=== PATIENT | male | born 1940 | race Caucasian/White ===

== ENCOUNTER 2023-02-25 12:39 | Observation (INO) | payer MEDICARE ==
[2023-02-25 12:57] VITALS: TEMP 98.7
[2023-02-25] MEDS ORDERED: NITROGLYCERIN OINT 1 INCH/GM PACKET TOPICAL STA (12:58)
[2023-02-25] MEDS ORDERED: ASPIRIN 81 MG PO STA (12:58)
--- NOTE | 2023-02-25 13:00 | ED ---
General Adult HPI - General Chief complaint: Chest Pain Stated complaint: Chest Pain Time Seen by Provider: 02/25/23 12:44 Source: patient, RN notes reviewed Mode of arrival: ambulatory Limitations: no limitations - History of Present Illness Initial comments: Patient is a pleasant 82-year-old male presenting to the emergency department with concerns for chest discomfort. Onset of symptoms was yesterday. Discomfort is currently rated 2/10. Discomfort is difficult to describe. No radiation. No associated dyspnea, nausea, or diaphoresis. No history of similar symptoms previously. Patient recently restarted Adderall and has had high blood pressure at home. - Related Data Home Medications Medication Instructions Recorded Confirmed ALPRAZolam [Xanax] 2 mg PO HS 11/03/22 11/03/22 Atorvastatin [Lipitor] 20 mg PO HS 11/03/22 11/03/22 Omeprazole 20 mg PO BID 11/03/22 11/03/22 Propranolol [Inderal] 10 mg PO TID 11/03/22 11/03/22 lisinopriL [Lisinopril] 40 mg PO HS 11/03/22 11/03/22 traZODone HCL 100 mg PO HS 11/03/22 11/03/22 Allergies Allergy/AdvReac Type Severity Reaction Status Date / Time No Known Allergies Allergy Verified 02/25/23 12:40 Review of Systems ROS Statement: Those systems with pertinent positive or pertinent negative responses have been documented in the HPI. ROS Other: All systems not noted in ROS Statement are negative. 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 Absent: chest wall tenderness, accessory muscle use Cardiovascular Exam: Present: regular rate, normal rhythm Expanded Peripheral pulses: 2+: Radial (R), Radial (L), Posterior Tibialis (R), Posterior Tibialis (L) GI/Abdominal exam: Present: soft. Absent: tenderness Extremities exam: Present: normal inspection. Absent: pedal edema, calf tenderness Neurological exam: Present: alert Psychiatric exam: Present: normal affect, normal mood Skin exam: Present: normal color Course Vital Signs 02/25/23 02/25/23 12:41 13:15 Temperature 98.7 F Pulse Rate 78 67 Respiratory 16 18 Rate Blood Pressure 154/98 124/85 O2 Sat by Pulse 98 99 Oximetry EKG Findings - EKG Results: EKG: interpreted by FRANKD (Right bundle branden block. Nonspecific T waves.), sinus rhythm, normal axis Medical Decision Making - Medical Decision Making Was pt. sent in by a medical professional or institution (, PA, ADVICE CLERK, urgent care, hospital, or alf...) When possible be specific @ -No Did you speak to anyone other than the patient for history (EMS, parent, family, police, friend...)? What history was obtained from this source @ -No Did you review nursing and triage notes (agree or disagree)? Why? @ -I reviewed and agree with nursing and triage notes Were old charts reviewed (outside hosp., previous admission, EMS record, old EKG, old radiological studies, urgent care reports/EKG's, alf records)? Report findings @ -No previous EKG available Differential Diagnosis (chest pain, altered mental status, abdominal pain women, abdominal pain men, vaginal bleeding, weakness, fever, dyspnea, syncope, headache, dizziness, GI bleed, back pain, seizure, CVA, palpatations, mental health, musculoskeletal)? @ -Differential Chest Pain: Stable Angina, Unstable Angina, STEMI, NSTEMI Aortic Dissection, Pneumothorax, Musculoskeletal, Esophageal Spasm GERD, Cholecystitis, Pancreatitis, Zoster, this is not meant to be an all-inclusive list. EKG interpreted by me (3pts min.). @ -As above X-rays interpreted by me (1pt min.). @ -Chest x-ray shows no acute process CT interpreted by me (1pt min.). @ -None done U/S interpreted by me (1pt. min.). @ -None done What testing was considered but not performed or refused? (CT, X-rays, U/S, labs)? Why? @ -None What meds were considered but not given or refused? Why? @ -None Did you discuss the management of the patient with other professionals (professionals i.e. , PA, ADVICE CLERK, lab, RT, psych nurse, social services specialist, ekg technician, teacher, benefits officer, oil field caser)? Give summary @ -[facility], Dr. Bartholomew who will admit current Dr. Naranjo Was smoking cessation discussed for >3mins.? @ -No Was critical care preformed (if so, how long)? @ -No Were there social determinants of health that impacted care today? How? (Homelessness, low income, unemployed, alcoholism, drug addiction, transportation, low edu. Level, literacy, decrease access to med. care, half-way, rehab)? @ -No Was there de-escalation of care discussed even if they declined (Discuss DNR or withdrawal of care, Hospice)? DNR status @ -No What co-morbidities impacted this encounter? (DM, HTN, Smoking, COPD, CAD, Cancer, CVA, ARF, Chemo, Hep., AIDS, mental health diagnosis, sleep apnea, morbid obesity)? @ -None Was patient admitted / discharged? Hospital course, mention meds given and route, prescriptions, significant lab abnormalities, going to OR and other pertinent info. @ -Patient reevaluated. Patient updated. Patient does have elevated d-dimer and computed tomography scan will be ordered. Patient will be admitted . Canal to replace and consult. Admission orders written. Undiagnosed new problem with uncertain prognosis? @ -No Drug Therapy requiring intensive monitoring for toxicity (Heparin, Nitro, Insulin, Cardizem)? @ -No Were any procedures done? @ -No Diagnosis/symptom? @ -Chest pain Acute, or Chronic, or Acute on Chronic? @ -Acute Uncomplicated (without systemic symptoms) or Complicated (systemic symptoms)? @ -default Side effects of treatment? @ -No Exacerbation, Progression, or Severe Exacerbation? @ -No Poses a threat to life or bodily function? How? (Chest pain, [place], [place], pneumonia, PE, COPD, DKA, ARF, appy, cholecystitis, CVA, Diverticulitis, Homicidal, Suicidal, threat to staff... and all critical care pts) @ -No - Lab Data Result diagrams: 02/25/23 13:08 02/25/23 13:08 Lab Results 02/25/23 02/25/23 02/25/23 Range/Units 13:08 13:08 13:08 WBC 5.1 (3.8-10.6) k/uL RBC 4.56 (4.30-5.90) m/uL Hgb 13.3 (13.0-17.5) gm/dL Hct 40.2 (39.0-53.0) % MCV 88.2 (80.0-100.0) fL MCH 29.1 (25.0-35.0) pg MCHC 33.0 (31.0-37.0) g/dL RDW 15.3 (11.5-15.5) % Plt Count 133 L (150-450) k/uL MPV 9.6 Neutrophils % 62 % Lymphocytes % 24 % Monocytes % 9 % Eosinophils % 2 % Basophils % 0 % Neutrophils # 3.2 (1.3-7.7) k/uL Lymphocytes # 1.2 (1.0-4.8) k/uL Monocytes # 0.5 (0-1.0) k/uL Eosinophils # 0.1 (0-0.7) k/uL Basophils # 0.0 (0-0.2) k/uL PT 9.9 L (10.0-12.5) sec INR 0.9 (<1.2) APTT 22.2 (22.0-30.0) sec D-Dimer 1.47 H (<0.60) mg/L FEU Sodium 133 L (137-145) mmol/L Potassium 5.2 H (3.5-5.1) mmol/L Chloride 99 (98-107) mmol/L Carbon Dioxide 25 (22-30) mmol/L Anion Gap 9 mmol/L BUN 17 (9-20) mg/dL Creatinine 0.88 (0.66-1.25) mg/dL Est GFR (CKD-EPI)AfAm >90 (>60 ml/min/1.73 sqM) Est GFR (CKD-EPI)NonAf 81 (>60 ml/min/1.73 sqM) Glucose 84 (74-99) mg/dL Calcium 9.0 (8.4-10.2) mg/dL Magnesium 2.1 (1.6-2.3) mg/dL Total Bilirubin 0.8 (0.2-1.3) mg/dL AST 46 (17-59) U/L ALT 20 (4-49) U/L Alkaline Phosphatase 41 (38-126) U/L Troponin I (0.000-0.034) ng/mL Total Protein 6.3 (6.3-8.2) g/dL Albumin 3.8 (3.5-5.0) g/dL 02/25/23 Range/Units 13:08 WBC (3.8-10.6) k/uL RBC (4.30-5.90) m/uL Hgb (13.0-17.5) gm/dL Hct (39.0-53.0) % MCV (80.0-100.0) fL MCH (25.0-35.0) pg MCHC (31.0-37.0) g/dL RDW (11.5-15.5) % Plt Count (150-450) k/uL MPV Neutrophils % % Lymphocytes % % Monocytes % % Eosinophils % % Basophils % % Neutrophils # (1.3-7.7) k/uL Lymphocytes # (1.0-4.8) k/uL Monocytes # (0-1.0) k/uL Eosinophils # (0-0.7) k/uL Basophils # (0-0.2) k/uL PT (10.0-12.5) sec INR (<1.2) APTT (22.0-30.0) sec D-Dimer (<0.60) mg/L FEU Sodium (137-145) mmol/L Potassium (3.5-5.1) mmol/L Chloride (98-107) mmol/L Carbon Dioxide (22-30) mmol/L Anion Gap mmol/L BUN (9-20) mg/dL Creatinine (0.66-1.25) mg/dL Est GFR (CKD-EPI)AfAm (>60 ml/min/1.73 sqM) Est GFR (CKD-EPI)NonAf (>60 ml/min/1.73 sqM) Glucose (74-99) mg/dL Calcium (8.4-10.2) mg/dL Magnesium (1.6-2.3) mg/dL Total Bilirubin (0.2-1.3) mg/dL AST (17-59) U/L ALT (4-49) U/L Alkaline Phosphatase (38-126) U/L Troponin I <0.012 (0.000-0.034) ng/mL Total Protein (6.3-8.2) g/dL Albumin (3.5-5.0) g/dL Disposition Clinical Impression: Chest pain Disposition: ADMITTED IP TO THIS HOSP Is patient prescribed a controlled substance at d/c from ED?: No Time of Disposition: 14:40
[2023-02-25 13:20] VITALS: RESP 18
[2023-02-25 13:58] LABS: Basophils % (A) 0 %; Eosinophils # (A) 0.1 k/uL (0-0.7); Eosinophils % (A) 2 %; HCT 40.2 % (39.0-53.0); HGB 13.3 gm/dL (13.0-17.5); Lymphocytes # (A) 1.2 k/uL (1.0-4.8); Lymphocytes % (A) 24 %; MCH 29.1 pg (25.0-35.0); MCV 88.2 fL (80.0-100.0); Mean Platelet Volume 9.6; Monocytes # (A) 0.5 k/uL (0-1.0); Monocytes % (A) 9 %; Neutrophils # (A) 3.2 k/uL (1.3-7.7); Neutrophils % (A) 62 %; Platelet Count 133 k/uL (150-450); RBC 4.56 m/uL (4.30-5.90); RDW 15.3 % (11.5-15.5); WBC 5.1 k/uL (3.8-10.6)
--- NOTE | 2023-02-25 14:01 | XR ---
EXAMINATION TYPE: XR chest 2V DATE OF EXAM: 02/25/2023 1:32 PM CLINICAL INDICATION:Male, 82 years old with history of Chest Pain; COMPARISON: None TECHNIQUE: XR chest 2V Frontal and lateral views of the chest. FINDINGS: Lungs/Pleura: There is flattening of the diaphragm with increased lucency of the lungs. No evidence o f pneumothorax, pleural effusion or focal consolidation. Pulmonary vascularity: Unremarkable. Heart/mediastinum: Cardiomediastinal silhouette is unremarkable. Musculoskeletal: No acute osseous pathology. Other findings: None IMPRESSION: 1. No acute cardiopulmonary disease process. 2. COPD changes.
[2023-02-25 14:07] LABS: ALT 20 U/L (4-49); AST 46 U/L (17-59); African American GFR (CKD) >90 (>60 ml/min/1.73 sqM); Albumin 3.8 g/dL (3.5-5.0); Alkaline Phosphatase 41 U/L (38-126); Anion Gap 9 mmol/L; Blood Urea Nitrogen 17 mg/dL (9-20); Carbon Dioxide 25 mmol/L (22-30); Chloride 99 mmol/L (98-107); Glucose 84 mg/dL (74-99); Magnesium 2.1 mg/dL (1.6-2.3); Non-African American GFR(CKD) 81 (>60 ml/min/1.73 sqM); Sodium 133 mmol/L (137-145); Total Bilirubin 0.8 mg/dL (0.2-1.3); Total Protein 6.3 g/dL (6.3-8.2)
[2023-02-25 14:18] LABS: INR 0.9 (<1.2); Partial Thromboplastin Time 22.2 sec (22.0-30.0); Prothrombin Time 9.9 sec (10.0-12.5)
[2023-02-25] MEDS ORDERED: NITROGLYCERIN SL TABS 0.4 MG TAB SUBLINGUAL PRN (14:41)
[2023-02-25 14:54] LABS: Potassium 5.2 mmol/L (3.5-5.1)
[2023-02-25 15:07] VITALS: BP 140/91; PULSE 75
--- NOTE | 2023-02-25 16:12 | CT ---
EXAMINATION TYPE: CT angio chest CT DLP: 933.9 mGycm, Automated exposure control for dose reduction was used. DATE OF EXAM: 02/25/2023 3:41 PM COMPARISON: Chest radiograph from same day. CLINICAL INDICATION:Male, 82 years old with history of cp; Elevated D-dimer. TECHNIQUE/CONTRAST: CTA scan of the thorax is performed with IV Contrast, patient injected with 150 ml mL of Isovue 370, MIP images are created and reviewed these are created on a separate workstation.. FINDINGS: Pulmonary Artery: There is no evidence for a central filling defect within the pulmonary vasculature to suggest acute pulmonary embolism. Limited evaluation of the segmental and subsegmental branches se condary to bolus timing. The pulmonary artery is of normal size. Lungs/Pleura: No evidence of focal consolidation, pleural effusion or pneumothorax. Scattered streaky atelectasis/scarring. Airway: Large airways are patent. Heart: Heart is within normal limits for size. Vasculature: No evidence of aortic aneurysm. 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 Mediastinum: No gross evidence of adenopathy. Musculoskeletal: No acute osseous abnormalities, multilevel degeneration changes throughout the spine . Scattered osteophytes, disc space narrowing, Schmorl's nodes and facet joint arthropathy. There is scoliosis changes to the spine. Severe degeneration changes of the shoulders with subchondral cystic change and likely [id number] articulation of the left shoulder. Soft Tissues: Unremarkable. Lower neck: No significant findings. Upper Abdomen: Simple appearing left renal cysts. IMPRESSION: 1. No evidence of central pulmonary embolism. Limited evaluation of the segmental and subsegmental br anches. 2. 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
[2023-02-25] MEDS ORDERED: NITROGLYCERIN OINT 1 INCH/GM PACKET TOPICAL SCH (18:00)
[2023-02-26] MEDS ORDERED: ASPIRIN 325 MG TAB PO SCH (09:00)
== END 2023-02-25 16:14 | disposition left against medical advice (07) ==
LOC: EC 12:39 → 6NMEDSUR 14:41
PROVIDERS: ADMIT Internal Medicine; ATTEND Internal Medicine
DX: R07.89 Other chest pain (principal); Z53.29 Procedure and treatment not carried out because of patient's decision for other reasons; I45.10 Unspecified right bundle-branch block; R79.89 Other specified abnormal findings of blood chemistry; R03.0 Elevated blood-pressure reading, without diagnosis of hypertension; G47.419 Narcolepsy without cataplexy; N42.9 Disorder of prostate, unspecified; H81.09 Meniere's disease, unspecified ear; Z90.49 Acquired absence of other specified parts of digestive tract; Z79.899 Other long term (current) drug therapy; Z98.890 Other specified postprocedural states
CPT/HCPCS: 99285; 36415; 93005; 85379; 80053; 83735; 84484; 85025; 85610; 85730; 71046; 71275; G0378; Q9967

== ENCOUNTER → 2023-02-25 | Outpatient (CLI) | payer MEDICARE ==
--- NOTE | 2023-02-25 15:12 | MR ---
EXAMINATION TYPE: MR iac wo/w con DATE OF EXAM: 02/25/2023 12:24 PM CLINICAL INDICATION:Male, 82 years old with history of R26.89, R42 GAIT,MOBILITY,DIZZINESS AND GIDDIN ESS; PHH, Unsteady gait, dizziness COMPARISON: None TECHNIQUE: Multi planar, multi sequence imaging was performed through the brain. Specialized thin s equences were obtained through the internal auditory canals. Pre-and post gadolinium sequences were obtained. MR contrast: IV Contrast: 9 cc Gadavist FINDINGS: Prior injury to the left frontal lobe and right frontal lobe with encephalomalacia and white matter changes. Dilation proportion to cerebral atrophy. The dobbins-white junctions, ventricular system, and c isterns appear unremarkable. Scattered foci of high T2 signal intensity are seen within the periventr icular white matter. Midline structures show no abnormality. Diffusion-weighted imaging shows no evid ence of restricted diffusion. The susceptibility weighted images do not reveal any evidence for micro -hemorrhage. The bone marrow signal is within normal limits. Paranasal sinuses and mastoid air cells: Mild scattered paranasal sinus disease. Visualized orbits: Bilateral aphakia After administration of gadolinium, no abnormal enhancement is seen. The internal auditory canal sequences demonstrate no significant irregularity. The 7th cranial nerve s, 8 cranial nerves, and cerebellar pontine angles appear unremarkable. After the administration milind olinium, no abnormal enhancement is seen within the internal auditory canals. Vascular loop: None. IMPRESSION: 1. No evidence of intracranial mass nor acute/subacute CVA. 2. No evidence of internal auditory canal abnormality. 3. Nonspecific white matter changes, likely secondary to small vessel ischemic disease. 4. 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
== END | disposition home or self-care (01) ==
LOC: RADMRIMAIN 11:02
PROVIDERS: ATTEND Psychiatry & Neurology Neurology
DX: G93.89 Other specified disorders of brain (principal); I67.82 Cerebral ischemia; R26.89 Other abnormalities of gait and mobility
CPT/HCPCS: 70553; A9585

== ENCOUNTER → 2023-03-02 | Outpatient (CLI) | payer MEDICARE ==
--- NOTE | 2023-03-03 09:44 | MR ---
EXAMINATION TYPE: MR angio neck wo/w con DATE OF EXAM: 03/02/2023 COMPARISON: None HISTORY: Abnormal gait and abnormal mobility, Abn MRI IAC, Vertigo, Dizziness, Hx of Prostate cancer 2017, CONTRAST: None TECHNIQUE: Multiplanar multiecho imaging on a 3.0 Jacy magnet is performed through the neck vessels. 3-D [id number] imaging is performed. Source images are reviewed on the computer in the axial p barbie. Rotating 3-D images are reviewed on the computer FINDINGS: There is a three-vessel arch. The common carotid arteries bifurcate normally into internal and sales management trainee al carotid arteries. Some atheromatous plaquing is noted on the left. However, no flow gap to suggest significant flow limiting stenosis is identified. Narrowing is likely mild approximating 50% on the left. Correlate with the patient's symptoms. Significant narrowing on the right is not appreciated. Vertebral arteries are codominant. There is some artifact present from slab reconstruction artifact causing limitation. IMPRESSION: 1. Some mild narrowing approximately 50% may be at the left internal carotid artery origin. Significa nt flow-limiting stenosis however is not evident bilateral carotid bifurcations.
== END | disposition home or self-care (01) ==
LOC: RADMRIMAIN 11:13
PROVIDERS: ATTEND Psychiatry & Neurology Neurology
DX: I65.22 Occlusion and stenosis of left carotid artery (principal); R26.89 Other abnormalities of gait and mobility; R42 Dizziness and giddiness; R93.7 Abnormal findings on diagnostic imaging of other parts of musculoskeletal system; R26.9 Unspecified abnormalities of gait and mobility; Z85.46 Personal history of malignant neoplasm of prostate
CPT/HCPCS: 70549; A9585

== ENCOUNTER → 2024-01-26 | Day surgery (SDC) | payer MEDICARE ==
[~2024-01-26] MED LIST: ALPRAZolam 0.25 MG TAB PO PRN; HEPARIN SODIUM,PORCINE (1 ML) 2,500 UNIT in SODIUM CHLORIDE 0.9% 250 ML IRRIGATION PRN; HEPARIN SODIUM,PORCINE 10,000 UNIT in SODIUM CHLORIDE 0.9% 1,000 ML IRRIGATION PRN; NITROGLYCERIN SL TABS 0.4 MG TAB SUBLINGUAL PRN
[2024-01-26] MEDS: ASPIRIN 325 MG TAB PO STA (10:40)
[2024-01-26] MEDS: SODIUM CHLORIDE 0.9% 1,000 ML in EMPTY BAG 1 BAG IV SCH (10:42)
[2024-01-26] MEDS: IV FLUID CONTINUATION 1,000 ML IV ONE (10:44)
[2024-01-26 10:51] VITALS: TEMP 97.8
[2024-01-26] MEDS: ALPRAZolam 0.5 MG TAB PO PRN (10:56)
[2024-01-26 10:57] LABS: Basophils % (A) 0 %; Eosinophils # (A) 0.1 k/uL (0-0.7); Eosinophils % (A) 2 %; HCT 38.5 % (39.0-53.0); HGB 12.7 gm/dL (13.0-17.5); Lymphocytes # (A) 1.1 k/uL (1.0-4.8); Lymphocytes % (A) 21 %; MCH 28.6 pg (25.0-35.0); MCHC 32.9 g/dL (31.0-37.0); MCV 86.9 fL (80.0-100.0); Monocytes # (A) 0.4 k/uL (0-1.0); Monocytes % (A) 8 %; Neutrophils # (A) 3.5 k/uL (1.3-7.7); Neutrophils % (A) 66 %; Platelet Count 146 k/uL (150-450); RBC 4.43 m/uL (4.30-5.90); RDW 14.2 % (11.5-15.5); WBC 5.3 k/uL (3.8-10.6)
[2024-01-26 11:25] LABS: African American GFR (CKD) >90 (>60 ml/min/1.73 sqM); Anion Gap 1 mmol/L; Blood Urea Nitrogen 15 mg/dL (9-20); Calcium 9.1 mg/dL (8.4-10.2); Carbon Dioxide 32 mmol/L (22-30); Chloride 100 mmol/L (98-107); Glucose 87 mg/dL (74-99); Non-African American GFR(CKD) 81 (>60 ml/min/1.73 sqM); Potassium 4.5 mmol/L (3.5-5.1); Sodium 133 mmol/L (137-145)
[2024-01-26] MEDS: MIDAZOLAM 2 MG/2 ML VIAL IVP ONE (12:25)
[2024-01-26] MEDS: fentaNYL (PF) 50 MCG/1 ML VIAL IVP ONE (12:25)
[2024-01-26] MEDS: LIDOCAINE 1% INJ 10MG/ML (20 ML MDV) SQ ONE (12:26)
[2024-01-26] MEDS: VERAPAMIL SYRINGE (5 MG/10 ML) INTRAARTER ONE (12:29)
[2024-01-26] MEDS: HEPARIN SODIUM 1,000 UN/ML (10ML VL) IV ONE (12:30)
[2024-01-26] MEDS: IOPAMIDOL-370 100ML BTL INJ ONE (12:34)
--- NOTE | 2024-01-26 14:26 | P.CARDCATH ---
Description of Procedure: PROCEDURES PERFORMED: Left heart catheterization, bilateral coronary angiography, ultrasound guided arterial access INDICATION: abnormal stress test CONSENT:I have discussed the risks, benefits and alternative therapies for the above-mentioned procedure and for both sedation/analgesia as well as necessary blood product administration, if indicated, as they pertain to this patient. The patient has indicated understanding and acceptance of the risks and procedures discussed. PROCEDURE: After the risks, benefits and alternatives of the above mentioned procedure explained in detail with the patient, informed consent was obtained. Patient was taken to the catheterization lab and prepped and draped in usual fashion. Ultrasound guidance was used to assess for arterial access. 1% lidocaine was used to anesthetize the right radial artery. A 6-Zambian sheath was placed in the right radial artery using modified Seldinger technique and ultrasound guidance. Left coronary angiography was performed with a 5-Z[place]ian JL 3.5 catheter and right coronary angiography was performed with a 5-Z[place]ian FR5 catheter in various views. A 5-[place]ian FR5 catheter was inserted into the left ventricle and pressure measurements were obtained. The right radial sheath was removed and a TR band was placed with hemostasis achieved. The patient to lerated the procedure well. Patient was transported back to the post catheterization holding area in stable condition. Conscious Sedation: Patient was monitored under the direct supervision of myself for conscious sedation using Versed and fentanyl for a total duration of 9 minutes HEMODYNAMICS: Aorta: 129/70 LV: 124/LVEDP 30 SELECTIVE CORONARY ARTERIOGRAPHY: LEFT MAIN: The left main is a large caliber vessel which bifurcates into the LAD and circumflex. There is no significant stenosis. LEFT ANTERIOR DESCENDING CORONARY ARTERY: LAD is a large caliber vessel which wraps around to the apex. There is mild 5-10% proximal LAD plaque and otherwise normal. LEFT CIRCUMFLEX CORONARY ARTERY: Left circumflex is a moderate caliber vessel without significant stenosis. RIGHT CORONARY ARTERY: The right coronary artery is a large caliber vessel which gives off a PDA and PLV branch and is the dominant vessel. There is no significant stenosis. FINAL IMPRESSION: 1. Relatively normal coronary arteries as described above with only 5-10% LAD stenosis. 2. Elevated left sided filling pressures PLAN: 1. Aggressive risk factor modification per most recent ACC/AHA guidelines. 2. Follow-up in the office in 1-2 weeks.
[2024-01-26 16:36] VITALS: BP 103/56; PULSE 54; RESP 14
== END ==
LOC: CATHCVL 10:13
PROVIDERS: ATTEND Internal Medicine
DX: R94.39 Abnormal result of other cardiovascular function study (principal)
CPT/HCPCS: 80048; 85025; 93458

== ENCOUNTER 2024-02-14 20:23 | Inpatient (IN) | payer MEDICARE ==
--- NOTE | 2024-02-14 21:01 | ED ---
General Adult HPI - General Chief complaint: Shortness of Breath Stated complaint: Pneumonia Time Seen by Provider: 02/14/24 20:34 Source: patient, EMS Mode of arrival: EMS Limitations: no limitations - History of Present Illness Initial comments: Dictation was produced using AVST dictation software. please excuse any grammatical, word or spelling errors. Chief Complaint: 83-year-old male presents to the emergency department concerns of pneumonia History of Present Illness: Patient is 83-year-old male he wears home oxygen states that he has a lung mass that makes it hard to breathe when he lays down. He states is not lung cancer. He wears 5 L nasal cannula at home. He presents with EMS he states that he is been having productive cough and fever since Monday. Denies any chest pain The ROS documented in this emergency department record has been reviewed and confirmed by me. Those systems with pertinent positive or negative responses have been documented in the HPI. All other systems are other negative and/or noncontributory. - Related Data Home Medications Medication Instructions Recorded Confirmed ALPRAZolam [Xanax] 2 mg PO HS 11/03/22 01/26/24 Atorvastatin [Lipitor] 20 mg PO QAM 11/03/22 01/26/24 Omeprazole 20 mg PO BID 11/03/22 01/26/24 lisinopriL [Lisinopril] 40 mg PO QAM 11/03/22 01/26/24 traZODone HCL 300 mg PO HS 11/03/22 01/26/24 Fluticasone Propionate [Flovent 1 puff INHALATION RT-BID PRN 02/25/23 01/26/24 Hfa 220 mcg] Gabapentin [Neurontin] 300 mg PO BID 02/25/23 01/26/24 Multivitamins, Thera [Multivitamin 1 tab PO DAILY 02/25/23 01/23/24 (formulary)] Naproxen Sodium [Naproxen Sodium 375 mg PO BID PRN 02/25/23 01/23/24 ER] Nitroglycerin Sl Tabs [Nitrostat] 0.4 mg SL Q5M PRN 02/25/23 01/23/24 Ondansetron Odt [Zofran Odt] 8 mg PO TID PRN 02/25/23 01/23/24 Testosterone [Androgel 1.62%] 2 pump TRANSDERM HS 02/25/23 01/26/24 Vitamin B Complex 1 cap PO DAILY 02/25/23 01/26/24 armodafiniL 150 mg PO QAM 02/25/23 01/26/24 FLUoxetine HCL [PROzac] 20 mg PO QAM 01/23/24 01/26/24 Meclizine [Antivert] 25 mg PO DAILY PRN 01/23/24 01/26/24 Promethazine [Phenergan] 25 mg PO HS PRN 01/23/24 01/23/24 Propranolol HCl 80 mg PO BID 01/23/24 01/26/24 hydrALAZINE HCL 25 mg PO DIRECTED PRN 01/26/24 01/26/24 Allergies Allergy/AdvReac Type Severity Reaction Status Date / Time No Known Allergies Allergy Verified 02/14/24 20:31 Review of Systems ROS Statement: Those systems with pertinent positive or pertinent negative responses have been documented in the HPI. ROS Other: All systems not noted in ROS Statement are negative. Past Medical History Past Medical History: Cancer, Prostate Disorder Additional Past Medical History / Comment(s): ESSENTAILS TREMORS. PROSTATE CANCER. MENIERS. Narcolepsy. ASPIRATION PNEUMONIA (SOB AT NIGHT, O2@5L). History of Any Multi-Drug Resistant Organisms: None Reported Past Surgical History: Appendectomy, Back Surgery Additional Past Surgical History / Comment(s): L4-5 BACK SURGERY. INOPERABLE PROSTATE CANCER (RADIATION). LASIK. EVY ORCHIECTOMY. Past Anesthesia/Blood Transfusion Reactions: No Reported Reaction Past Psychological History: No Psychological Hx Reported Smoking Status: Never smoker Past Alcohol Use History: Occasional Past Drug Use History: None Reported General Exam - General Exam Comments Initial Comments: PHYSICAL EXAM: General Impression: Alert and oriented x3, not in acute distress HEENT: Normocephalic atraumatic, extra-ocular movements intact, pupils equal and reactive to light bilaterally, mucous membranes moist. Cardiovascular: Heart regular rate and rhythm Chest: Able to complete full sentences, no retractions, no tachypnea rhonchi with auscultation to the right lung hilliard Abdomen: abdomen soft, non-tender, non-distended, no organomegaly Musculoskeletal: Pulses present and equal in all extremities, no peripheral edema Motor: no focal deficits noted Neurological: CN II-XII grossly intact, no focal motor or sensory deficits noted Skin: Intact with no visualized rashes Psych: Normal affect and mood Limitations: no limitations Course Vital Signs 02/14/24 20:26 Temperature 98.5 F Pulse Rate 69 Respiratory 18 Rate Blood Pressure 98/59 O2 Sat by Pulse 95 Oximetry EKG Findings - EKG Comments: EKG Findings:: My EKG interpretation: Ventricular rate 64, sinus rhythm,. 1-28, QRS 162, QTc 497. No [place] prolongation, no QTC prolongation, no ST or T-wave changes noted. Overall, this EKG is unremarkable Medical Decision Making - Medical Decision Making Was pt. sent in by a medical professional or institution (, PA, GREEN MEAT GRADER, urgent care, hospital, or care home...) When possible be specific @ -No Did you speak to anyone other than the patient for history (EMS, parent, family, police, friend...)? What history was obtained from this source @ -No Did you review nursing and triage notes (agree or disagree)? Why? @ -I reviewed and agree with nursing and triage notes Were old charts reviewed (outside hosp., previous admission, EMS record, old EKG, old radiological studies, urgent care reports/EKG's, care home records)? Report findings @ -No old charts were reviewed Differential Diagnosis (chest pain, altered mental status, abdominal pain women, abdominal pain men, vaginal bleeding, musculoskeletal, weakness, fever, dyspnea, syncope, headache, dizziness, GI bleed, back pain, seizure, CVA, palpatations, mental health)? @ -Differential Dyspnea: Coronary syndrome, arrhythmia, tamponade, asthma, COPD, pulmonary embolism, pneumonia, pneumothorax, pulmonary effusion, anaphylaxis, diabetic ketoacidosis, flailed chest, pulmonary contusion, diaphragmatic rupture, anemia, neuromuscular, this is not meant to be an all-inclusive list. EKG interpreted by me (3pts min.). @ -See above X-rays interpreted by me (1pt min.). @ -Chest x-ray shows bibasilar infiltrates suspicious for pneumonia CT interpreted by me (1pt min.). @ -None done U/S interpreted by me (1pt. min.). @ -None done What testing was considered but not performed or refused? (CT, X-rays, U/S, labs)? Why? @ -None What meds were considered but not given or refused? Why? @ -None Was smoking cessation discussed for >3mins.? @ -No Were there social determinants of health that impacted care today? How? (Homelessness, low income, unemployed, alcoholism, drug addiction, transportation, low edu. Level, literacy, decrease access to med. care, mcc, rehab)? @ -No Was there de-escalation of care discussed even if they declined (Discuss DNR or withdrawal of care, Hospice)? DNR status @ -No What co-morbidities impacted this encounter? (DM, HTN, Smoking, COPD, CAD, Cancer, CVA, ARF, Chemo, Hep., AIDS, mental health diagnosis, sleep apnea, morbid obesity)? @ -Home oxygen Was patient admitted / discharged? Hospital course, mention meds given and route, prescriptions, significant lab abnormalities, going to OR and other pertinent info. @ -83-year-old male presents emergency department for productive cough congestion. Patient wears home O2. Vital signs upon arrival are within acceptable limits. Patient appears to be slightly dyspneic rhonchi in the right side of the lungs. However patient sent to seen to be in significant distress. Laboratory evaluation obtained. No leukocytosis. Rest of labs within acceptable limits x-ray shows pneumonia given patient's high risk of home O2, el narendra age patient will be admitted antibiotics. Pulmonary consulted. Case discussed with hospitalist for admission Did you discuss the management of the patient with other professionals (professionals i.e. , PA, GREEN MEAT GRADER, lab, RT, psych nurse, dialysis social worker, comb fixer, teacher, customs and border protection officer, supportive employment case manager)? Give summary @ -As above Was critical care preformed (if so, how long)? @ -No Undiagnosed new problem with uncertain prognosis? @ -No Drug Therapy requiring intensive monitoring for toxicity (Heparin, Nitro, Insulin, Cardizem)? @ -No Were any procedures done? @ -No Diagnosis/symptom? Acute, or Chronic, or Acute on Chronic? Uncomplicated (without systemic symptoms) or Complicated (systemic symptoms)? @ -Pneumonia Side effects of treatment? @ -No Exacerbation, Progression, or Severe Exacerbation? @ -No Poses a threat to life or bodily function? How? (Chest pain, [place], [place], pneumonia, PE, COPD, DKA, ARF, appy, cholecystitis, CVA, Diverticulitis, Homicidal, Suicidal, threat to staff... and all critical care pts) @ -yes - Lab Data Result diagrams: 02/14/24 20:34 02/14/24 20:34 Lab Results 02/14/24 02/14/24 02/14/24 Range/Units 20:34 20:34 20:34 WBC 6.7 (3.8-10.6) k/uL RBC 3.73 L (4.30-5.90) m/uL Hgb 10.8 L (13.0-17.5) gm/dL Hct 32.7 L (39.0-53.0) % MCV 87.6 (80.0-100.0) fL MCH 29.0 (25.0-35.0) pg MCHC 33.1 (31.0-37.0) g/dL RDW 14.3 (11.5-15.5) % Plt Count 135 L (150-450) k/uL MPV 8.3 Neutrophils % 63 % Lymphocytes % 22 % Monocytes % 8 % Eosinophils % 4 % Basophils % 0 % Neutrophils # 4.2 (1.3-7.7) k/uL Lymphocytes # 1.5 (1.0-4.8) k/uL Monocytes # 0.5 (0-1.0) k/uL Eosinophils # 0.2 (0-0.7) k/uL Basophils # 0.0 (0-0.2) k/uL Sodium 135 L (137-145) mmol/L Potassium 4.1 (3.5-5.1) mmol/L Chloride 100 (98-107) mmol/L Carbon Dioxide 30 (22-30) mmol/L Anion Gap 5 mmol/L BUN 24 H (9-20) mg/dL Creatinine 1.20 (0.66-1.25) mg/dL Est GFR (CKD-EPI)AfAm 65 (>60 ml/min/1.73 sqM) Est GFR (CKD-EPI)NonAf 56 (>60 ml/min/1.73 sqM) Glucose 114 H (74-99) mg/dL Plasma Lactic Acid Corbin 1.1 (0.7-2.0) mmol/L Calcium 9.1 (8.4-10.2) mg/dL Magnesium 1.9 (1.6-2.3) mg/dL Total Bilirubin 0.3 (0.2-1.3) mg/dL AST 28 (17-59) U/L ALT 12 (4-49) U/L Alkaline Phosphatase 49 (38-126) U/L Troponin I (0.000-0.034) ng/mL NT-Pro-B Natriuret Pep 1100 pg/mL Total Protein 5.3 L (6.3-8.2) g/dL Albumin 3.3 L (3.5-5.0) g/dL Influenza Type A (PCR) (Not Detectd) Influenza Type B (PCR) (Not Detectd) RSV (PCR) (Not Detectd) SARS-CoV-2 (PCR) (Not Detectd) 02/14/24 02/14/24 Range/Units 20:34 20:34 WBC (3.8-10.6) k/uL RBC (4.30-5.90) m/uL Hgb (13.0-17.5) gm/dL Hct (39.0-53.0) % MCV (80.0-100.0) fL MCH (25.0-35.0) pg MCHC (31.0-37.0) g/dL RDW (11.5-15.5) % Plt Count (150-450) k/uL MPV Neutrophils % % Lymphocytes % % Monocytes % % Eosinophils % % Basophils % % Neutrophils # (1.3-7.7) k/uL Lymphocytes # (1.0-4.8) k/uL Monocytes # (0-1.0) k/uL Eosinophils # (0-0.7) k/uL Basophils # (0-0.2) k/uL Sodium (137-145) mmol/L Potassium (3.5-5.1) mmol/L Chloride (98-107) mmol/L Carbon Dioxide (22-30) mmol/L Anion Gap mmol/L BUN (9-20) mg/dL Creatinine (0.66-1.25) mg/dL Est GFR (CKD-EPI)AfAm (>60 ml/min/1.73 sqM) Est GFR (CKD-EPI)NonAf (>60 ml/min/1.73 sqM) Glucose (74-99) mg/dL Plasma Lactic Acid Corbin (0.7-2.0) mmol/L Calcium (8.4-10.2) mg/dL Magnesium (1.6-2.3) mg/dL Total Bilirubin (0.2-1.3) mg/dL AST (17-59) U/L ALT (4-49) U/L Alkaline Phosphatase (38-126) U/L Troponin I <0.012 (0.000-0.034) ng/mL NT-Pro-B Natriuret Pep pg/mL Total Protein (6.3-8.2) g/dL Albumin (3.5-5.0) g/dL Influenza Type A (PCR) Not Detected (Not Detectd) Influenza Type B (PCR) Not Detected (Not Detectd) RSV (PCR) Not Detected (Not Detectd) SARS-CoV-2 (PCR) Not Detected (Not Detectd) Disposition Clinical Impression: Pneumonia Disposition: ADMITTED IP TO THIS HOSP Condition: Fair Referrals: Joi Naranjo DO [Primary Care Provider] - 1-2 days Decision Time: 22:52
[2024-02-14 21:15] LABS: ALT 12 U/L (4-49); AST 28 U/L (17-59); African American GFR (CKD) 65 (>60 ml/min/1.73 sqM); Albumin 3.3 g/dL (3.5-5.0); Alkaline Phosphatase 49 U/L (38-126); Anion Gap 5 mmol/L; Blood Urea Nitrogen 24 mg/dL (9-20); Calcium 9.1 mg/dL (8.4-10.2); Carbon Dioxide 30 mmol/L (22-30); Chloride 100 mmol/L (98-107); Glucose 114 mg/dL (74-99); Magnesium 1.9 mg/dL (1.6-2.3); Non-African American GFR(CKD) 56 (>60 ml/min/1.73 sqM); Potassium 4.1 mmol/L (3.5-5.1); Sodium 135 mmol/L (137-145); Total Bilirubin 0.3 mg/dL (0.2-1.3); Total Protein 5.3 g/dL (6.3-8.2)
[2024-02-14 21:23] LABS: NT-Pro-B-Type Natriuretic Pept 1100 pg/mL
[2024-02-14] MEDS: SODIUM CHLORIDE 0.9% 1,000 ML IV STA (21:24)
[2024-02-14 21:26] LABS: Basophils % (A) 0 %; Eosinophils # (A) 0.2 k/uL (0-0.7); Eosinophils % (A) 4 %; HCT 32.7 % (39.0-53.0); HGB 10.8 gm/dL (13.0-17.5); Lymphocytes # (A) 1.5 k/uL (1.0-4.8); Lymphocytes % (A) 22 %; MCHC 33.1 g/dL (31.0-37.0); MCV 87.6 fL (80.0-100.0); Mean Platelet Volume 8.3; Monocytes # (A) 0.5 k/uL (0-1.0); Monocytes % (A) 8 %; Neutrophils # (A) 4.2 k/uL (1.3-7.7); Neutrophils % (A) 63 %; Platelet Count 135 k/uL (150-450); RBC 3.73 m/uL (4.30-5.90); RDW 14.3 % (11.5-15.5); WBC 6.7 k/uL (3.8-10.6)
--- NOTE | 2024-02-14 22:01 | XR ---
EXAMINATION TYPE: XR chest 2V DATE OF EXAM: 02/14/2024 COMPARISON: 02/25/2023 INDICATION: Patient c/o chest congestion, cough, tremors, and increased SOB since Monday. Patient sta gibran he wears between 5-7L of O2 at home. Pneumonia TECHNIQUE: Frontal and lateral views of the chest are obtained. FINDINGS: The heart size is normal. The pulmonary vasculature is normal. Some mild nonspecific increased lung markings at the lung bases. Atelectasis or bibasilar pneumonia c ould be considered. IMPRESSION: 1. Mild bibasilar infiltrates. Correlate for subsegmental atelectasis. Developing pneumonia should be considered. Follow-up can be performed as clinically indicated. [facility], Workstation: [facility], 02/14/2024 9:58 PM
[2024-02-14] MEDS ORDERED: PNEUMONIA PROTOCOL UTILIZED 1 EACH MISC PO PRN (22:44)
[2024-02-14] MEDS: SODIUM CHLORIDE 0.9% 1,000 ML IV SCH (23:50)
[2024-02-15 01:30] LABS: INR 0.9 (<1.2); Partial Thromboplastin Time 22.4 sec (22.0-30.0); Prothrombin Time 9.7 sec (10.0-12.5)
[2024-02-15] MEDS: ALPRAZolam 1 MG TAB PO PRN (02:23)
[2024-02-15] MEDS: FLUTICASONE NASAL 50MCG/SPRAY 16GM BTL EA NOSTRIL PRN (02:23)
--- NOTE | 2024-02-15 05:27 | P.CNPUL ---
History of Present Illness Consult date: 02/15/24 Requesting physician: Dank Clark Reason for consult: pneumonia Chief complaint: Productive cough History of present illness: Patient is an 84-year-old white male with past medical history significant for prostate cancer status post radiation, hypertension, hyperlipidemia, subdural hematoma, obstructive sleep apnea, and chronic hypoxemic respiratory failure, reportedly wears 5 L/min nasal cannula at bedtime. PCP is Dr. Naranjo. Patient presented to the ED last night. He is a poor historian. Becomes short of breath at times. Chronically wears 5 L/min O2 nasal cannula at bedtime. Endorses chest congestion and a cough with hanley sputum production. Denies sick contacts. States that he lives alone. His blood pressure was reading low 76/44 mmHg while at home. He was admitted with a diagnosis of pneumonia. Chest x-ray shows subtle bibasilar infiltrates. Possible atelectasis or developing pneumonia. Given patient's symptoms, started on empiric antibiotics in the ED. CBC: WBC count 6.7, hemoglobin 10.8, hematocrit 32.7, platelets 135. CMP: Sodium 135, potassium 4.1, chloride 101 100, serum bicarb 30, BUN 24, creatinine 1.2, glucose 114. Lactic acid 1.1. LFTs unremarkable. Troponin less than 0.012. NT proBNP 1100. EKG: Sinus rhythm with first-degree AV block, rate 64 bpm, RBBB pattern, QT/QTc 488/497, no ischemic changes. Viral screen negative for influenza, RSV, COVID. Has remained afebrile inpatient. Vitals have remained stable. He is currently being evaluated on the general medical floor. He is weak, requires assistance to sit at the side of the bed. Occasional spasms/jerks, which he calls tremors. He follows with Dr. Chowdhury for this outpatient. He is on 5 L/min nasal cannula, which he reportedly wears every night while at home. He is in no respiratory distress. Review of Systems Constitutional: Denies chills, Denies fever, Denies poor appetite, Denies weight gain, Denies weight loss Ears, nose, mouth and throat: Denies headache, Denies nasal congestion, Denies nasal discharge, Denies post-nasal drip, Denies sinus pain, Denies sinus pressure Cardiovascular: Reports shortness of breath, Denies chest pain, Denies dyspnea on exertion, Denies leg edema, Denies orthopnea, Denies palpitations, Denies paroxysmal nocturnal dyspnea Gastrointestinal: Denies abdominal pain, Denies change in bowel habits, Denies diarrhea, Denies nausea, Denies vomiting Genitourinary: Denies dysuria, Denies flank pain, Denies hematuria, Denies urinary frequency Musculoskeletal: Denies limitation of motion Integumentary: Denies rash Neurological: Reports tremors, Reports weakness, Denies change in speech, Denies confusion, Denies motor disturbance, Denies numbness, Denies paralysis, Denies paresthesias, Denies seizures, Denies syncope, Denies visual changes Psychiatric: Denies anxiety, Denies depression Past Medical History Past Medical History: Cancer, Prostate Disorder Additional Past Medical History / Comment(s): ESSENTAILS TREMORS. PROSTATE CANCER. MENIERS. Narcolepsy. ASPIRATION PNEUMONIA (SOB AT NIGHT, O2@5-7L). broken ankle in [employer] History of Any Multi-Drug Resistant Organisms: None Reported Past Surgical History: Appendectomy, Back Surgery Additional Past Surgical History / Comment(s): L4-5 BACK SURGERY. INOPERABLE PROSTATE CANCER (RADIATION). LASIK. EVY ORCHIECTOMY. Past Anesthesia/Blood Transfusion Reactions: No Reported Reaction Past Psychological History: No Psychological Hx Reported Smoking Status: Never smoker Past Alcohol Use History: Occasional Past Drug Use History: None Reported Medications and Allergies Home Medications Medication Instructions Recorded Confirmed Type ALPRAZolam [Xanax] 2 mg PO HS 11/03/22 01/26/24 History Atorvastatin [Lipitor] 20 mg PO QAM 11/03/22 01/26/24 History Omeprazole 20 mg PO BID 11/03/22 01/26/24 History lisinopriL [Lisinopril] 40 mg PO QAM 11/03/22 01/26/24 History traZODone HCL 300 mg PO HS 11/03/22 01/26/24 History Fluticasone Propionate [Flovent 1 puff INHALATION RT-BID PRN 02/25/23 01/26/24 History Hfa 220 mcg] Gabapentin [Neurontin] 300 mg PO BID 02/25/23 01/26/24 History Multivitamins, Thera [Multivitamin 1 tab PO DAILY 02/25/23 01/23/24 History (formulary)] Naproxen Sodium [Naproxen Sodium 375 mg PO BID PRN 02/25/23 01/23/24 History ER] Nitroglycerin Sl Tabs [Nitrostat] 0.4 mg SL Q5M PRN 02/25/23 01/23/24 History Ondansetron Odt [Zofran Odt] 8 mg PO TID PRN 02/25/23 01/23/24 History Testosterone [Androgel 1.62%] 2 pump TRANSDERM HS 02/25/23 01/26/24 History Vitamin B Complex 1 cap PO DAILY 02/25/23 01/26/24 History armodafiniL 150 mg PO QAM 02/25/23 01/26/24 History FLUoxetine HCL [PROzac] 20 mg PO QAM 01/23/24 01/26/24 History Meclizine [Antivert] 25 mg PO DAILY PRN 01/23/24 01/26/24 History Promethazine [Phenergan] 25 mg PO HS PRN 01/23/24 01/23/24 History Propranolol HCl 80 mg PO BID 01/23/24 01/26/24 History hydrALAZINE HCL 25 mg PO DIRECTED PRN 01/26/24 01/26/24 History Allergies Allergy/AdvReac Type Severity Reaction Status Date / Time No Known Allergies Allergy Verified 02/14/24 20:31 Physical Exam Vitals: Vital Signs Temp Pulse Pulse Resp BP BP Pulse Ox 02/15/24 02:00 97.6 F 62 16 114/66 99 02/14/24 23:55 98.6 F 58 L 18 102/61 98 02/14/24 23:00 58 L 18 95/58 98 02/14/24 22:00 62 18 96/54 98 02/14/24 21:00 60 18 108/51 94 L 02/14/24 20:26 98.5 F 69 18 98/59 95 Intake and Output 02/14/24 02/14/24 02/15/24 14:59 22:59 06:59 Other: Weight 92.533 kg 92.533 kg GENERAL EXAM: Alert, 83-year-old white male, comfortable in no apparent dis tress, occasional generalized spasming or myoclonic jerks. HEAD: Normocephalic and atraumatic EYES: Normal reaction of pupils, equal size. NOSE: Clear with pink turbinates. THROAT: No erythema or exudates. NECK: No masses, no JVD. CHEST: No chest wall deformity. LUNGS: Equal air entry with no crackles, wheeze, rhonchi or dullness. On 5 L/min nasal cannula. No conversational dyspnea or accessory muscle use.. CVS: S1 and S2 normal with no audible murmur, regular rhythm. No extra heart sounds ABDOMEN: No hepatosplenomegaly, active bowel sounds, no guarding or rigidity. SPINE: No scoliosis or deformity SKIN: No rashes CENTRAL NERVOUS SYSTEM: No focal deficits, tone is normal in all 4 extremities. EXTREMITIES: There is no peripheral edema, clubbing, or cyanosis. Peripheral pulses are intact. Results - Laboratory Findings CBC and BMP: 02/14/24 20:34 02/14/24 20:34 PT/INR, D-dimer PT 9.7 sec (10.0-12.5) L 02/15/24 00:55 INR 0.9 (<1.2) 02/15/24 00:55 Abnormal lab findings: Abnormal Labs 02/14/24 02/14/24 02/15/24 20:34 20:34 00:55 RBC 3.73 L Hgb 10.8 L Hct 32.7 L Plt Count 135 L PT 9.7 L Sodium 135 L BUN 24 H Glucose 114 H Total Protein 5.3 L Albumin 3.3 L - Diagnostic Findings Chest x-ray: image reviewed Assessment and Plan Assessment: Possible bibasilar community-acquired pneumonia, chest x-ray shows subtle bibasilar infiltrates, probable atelectasis or developing pneumonia. Acute dyspnea Chronic hypoxemic respiratory failure, reportedly wears 5 L/min nasal cannula at bedtime Normocytic, normochromic anemia History of hypertension History of hyperlipidemia History of prostate cancer Never smoker Plan: Patient's medications, labs, chest x-ray reviewed Wean FiO2 as tolerated Patient was admitted with a presumptive diagnosis of pneumonia in the ED. There are subtle bibasilar opacities, possible atelectasis vs infectious infiltrates. Continue empiric antibiotics for now Check procalcitonin level Viral screen negative for influenza, RSV, COVID Nontoxic appearance We will continue to follow I have personally seen and examined the patient, performed the documentation and the assessment and plan as written. Number of minutes spent on the visit:20 Time with Patient: Greater than 30
--- NOTE | 2024-02-15 07:20 | XR ---
EXAMINATION TYPE: XR chest 2V DATE OF EXAM: 02/15/2024 6:53 AM COMPARISON: 02/14/2024 CLINICAL INDICATION: Male, 83 years old with history of pneumonia, , TECHNIQUE: PA and lateral views FINDINGS: Heart mildly enlarged. Tortuous thoracic aorta. Interstitial densities persist. Patchy bilateral lowe r lung opacities slightly increased. Kole B lines noted at the periphery of the right lower lung. N o sizable pleural effusion. Hyperinflation. IMPRESSION: COPD with mild cardiomegaly and ongoing diffuse interstitial density. There are some faint Kole B l heidi now demonstrated on the right a slight increase in patchy lower lung densities. Slight increasin g interstitial infiltrate or developing mild interstitial pulmonary edema are considerations. [facility], , 02/15/2024 7:17 AM
[2024-02-15 07:54] VITALS: BP 107/67; PULSE 65; RESP 18; TEMP 97.8
--- NOTE | 2024-02-15 08:07 | CT ---
EXAMINATION TYPE: CT chest angio for PE DATE OF EXAM: 02/15/2024 7:04 AM COMPARISON: 02/25/2023 CLINICAL INDICATION: Male, 83 years old with history of rule out PE, r/o pe, TECHNIQUE: Contiguous axial scanning of the chest performed with IV Contrast, patient injected with 8 0 mL of Isovue 370. Coronal and sagittal MIP reconstructions performed. CT DLP: 446.6 mGycm, Automated exposure control for dose reduction was used. FINDINGS: The heart is upper limits of normal in size without pericardial effusion. No flattening of the interv entricular septum. Minimal refluxing contrast into the hepatic veins. LAD coronary artery calcificati ons. Ectatic aorta root 3.7 cm. Ectatic ascending aorta 3.5 cm. Conventional arch vessel branching anatomy . Prominent 1.9 cm right hilar lymph node has increased from 02/25/2023 but may be reactive. Additional right hilar lymph nodes measure up to 1.5 cm. Large caliber main right and the pulmonary areas measuring up to 2.7 cm suggesting underlying pulmona ry arterial hypertension. There is prominent breathing motion artifact degrading assessment for pulmonary emboli. No large cent ral or definite lobar branch pulmonary embolus. Segmental and more distal arterial branches are essen tially nondiagnostic and embolized these levels cannot be excluded on the basis of this exam. Diffuse interstitial density and scattered patchy groundglass opacity. Moderate diffuse bronchial wal l thickening. More confluent patchy groundglass change right infrahilar region. There are trace bilat eral pleural effusions with adjacent atelectasis. Background mild emphysematous change. Visualized upper abdomen shows hypodense partially exophytic 1.5 cm cortical lesion posterior left ki dney which was present in 2022 as well suggestive of a cyst. Bones: Slight dextroconvex curvature. Straightening of the normal thoracic kyphosis. IMPRESSION: 1. THE PATIENT IS BREATHING DURING THE SCAN. THIS DEGRADES ASSESSMENT FOR PULMONARY EMBOLUS. NO LARGE CENTRAL OR DEFINITE LOBAR BRANCH EMBOLUS. SEGMENTAL AND MORE DISTAL ARTERIAL BRANCHES ARE ESSENTIALL Y NONDIAGNOSTIC AND EMBOLI IN THESE LOCATIONS CANNOT BE EXCLUDED ON THE BASIS OF THIS EXAM. 2. COPD with mild emphysema. 3. Pulmonary arterial hypertension with diffuse septal lines and scattered groundglass as well as tra ce pleural effusions. Consider CHF with interstitial pulmonary edema. Other pneumonitis not excluded. Clinically correlate. 4. Right hilar adenopathy measuring up to 1.9 cm probably reactive. Recommend three-month follow-up C T to ensure stability/resolution. [facility], , 02/15/2024 8:05 AM
[2024-02-15] MEDS: AZITHROMYCIN 500 MG TAB PO SCH (09:19)
[2024-02-15] MEDS: FLUoxetine HCL 20 MG CAP PO SCH (11:11)
[2024-02-15] MEDS: lisinopriL 20 MG TAB PO SCH (11:12)
[2024-02-15] MEDS: FUROSEMIDE 20 MG TAB PO SCH (12:02)
--- NOTE | 2024-02-15 14:47 | P.HPIM ---
History of Present Illness H&P Date: 02/15/24 Chief Complaint: Productive cough, progressive shortness of breath History and physical and Discharge Summary: This is an 83-year-old gentleman with past medical history significant for prostate cancer status post radiation on testosterone, subdural hematoma, chronic hypoxic respiratory failure-states he adjusts his O2 anywhere from 2.5 to 7 L at bedtime, obstructive sleep apnea, essential tremors-follows with Dr. Chowdhury hypertension, hyperlipidemia, recent cardiac catheterization with Dr. Pierre 2 weeks ago reporting relatively normal coronary arteries with only 5 to 10% LAD stenosis, elevated left-sided filling pressures/aggressive risk modification recommended. Presented to the ER with progressive shortness of breath and cough. Chest x-ray reported bibasilar infiltrates, possible atelectasis or developing pneumonia. Procalcitonin normal. afebrile, normal WBC bicarb 30, BUN 24, creatinine 1.2 proBNP 1100, viral screen negative. Empiric antibiotics initiated in the ER. Troponins negative, EKG reporting sinus with first-degree AV block, right bundle branch block. Elevated D-dimer, 1.69, CTA ordered. Review of Systems ROS Statement: Those systems with pertinent positive or pertinent negative responses have been documented in the HPI. ROS Other: All systems not noted in ROS Statement are negative. Past Medical History Past Medical History: Cancer, Prostate Disorder Additional Past Medical History / Comment(s): ESSENTAILS TREMORS. PROSTATE CANCER. MENIERS. Narcolepsy. ASPIRATION PNEUMONIA (SOB AT NIGHT, O2@5-7L). broken ankle in [employer] History of Any Multi-Drug Resistant Organisms: None Reported Past Surgical History: Appendectomy, Back Surgery Additional Past Surgical History / Comment(s): L4-5 BACK SURGERY. INOPERABLE PROSTATE CANCER (RADIATION). LASIK. EVY ORCHIECTOMY. Past Anesthesia/Blood Transfusion Reactions: No Reported Reaction Past Psychological History: No Psychological Hx Reported Smoking Status: Never smoker Past Alcohol Use History: Occasional Past Drug Use History: None Reported Medications and Allergies Home Medications Medication Instructions Recorded Confirmed Type ALPRAZolam [Xanax] 2 mg PO HS 11/03/22 02/15/24 History Atorvastatin [Lipitor] 20 mg PO HS 11/03/22 02/15/24 History Omeprazole 20 mg PO BID 11/03/22 02/15/24 History lisinopriL [Lisinopril] 40 mg PO DAILY 11/03/22 02/15/24 History traZODone HCL 300 mg PO HS 11/03/22 02/15/24 History Gabapentin [Neurontin] 300 mg PO BID 02/25/23 02/15/24 History Naproxen Sodium [Naproxen Sodium 375 mg PO BID PRN 02/25/23 02/15/24 History ER] Nitroglycerin Sl Tabs [Nitrostat] 0.4 mg SL Q5M PRN 02/25/23 02/15/24 History Testosterone [Androgel 1.62%] 2 pump TRANSDERM HS 02/25/23 02/15/24 History Vitamin B Complex 1 cap PO DAILY 02/25/23 02/15/24 History FLUoxetine HCL [PROzac] 20 mg PO QAM 01/23/24 02/15/24 History Meclizine [Antivert] 25 mg PO DAILY PRN 01/23/24 02/15/24 History Promethazine [Phenergan] 25 mg PO HS PRN 01/23/24 02/15/24 History Propranolol HCl 80 mg PO BID 01/23/24 02/15/24 History hydrALAZINE HCL 25 mg PO TID PRN 01/26/24 02/15/24 History Azelastine HCl [Astelin Nasal 2 spray EA NOSTRIL BID 02/15/24 02/15/24 History [place]] Azithromycin [Zithromax Z Pack] 1 tab PO DIRECTED #6 tab 02/15/24 Rx Cholecalciferol [Vitamin D3 (25 25 mcg PO DAILY 02/15/24 02/15/24 History Mcg = 1000 Iu)] Denosumab [Prolia] 60 mg SQ Q180D 02/15/24 02/15/24 History Fluticasone Propion/Salmeterol 1 puff INHALATION RT-BID 02/15/24 02/15/24 History [Advair 250-50 Diskus] Primidone [Mysoline] 25 mg PO BID 02/15/24 02/15/24 History Teriparatide [Forteo] 20 mcg SQ DAILY 02/15/24 02/15/24 History armodafiniL 250 mg PO QAM 02/15/24 02/15/24 History busPIRone HCl [Buspar] 5 mg PO DAILY 02/15/24 02/15/24 History Allergies Allergy/AdvReac Type Severity Reaction Status Date / Time No Known Allergies Allergy Verified 02/15/24 10:34 Physical Exam Vitals: Vital Signs Temp Pulse Pulse Resp BP BP Pulse Ox 02/15/24 09:00 18 02/15/24 08:00 97.8 F 65 18 107/67 99 02/15/24 07:53 97.8 F 65 18 107/67 99 02/15/24 02:00 97.6 F 62 16 114/66 99 02/14/24 23:55 98.6 F 58 L 18 102/61 98 02/14/24 23:00 58 L 18 95/58 98 02/14/24 22:00 62 18 96/54 98 02/14/24 21:00 60 18 108/51 94 L 02/14/24 20:26 98.5 F 69 18 98/59 95 Intake and Output 02/14/24 02/15/24 02/15/24 22:59 06:59 14:59 Output Total 350 Balance -350 Output: Urine 350 Other: Voiding Method Urinal Weight 92.533 kg 92.533 kg PHYSICAL EXAM: VITAL SIGNS: [Reviewed] GENERAL: Alert and oriented x 3, sitting up in bed, no acute distress. HEENT: Normocephalic, atraumatic conjunctivae normal. eyes normal. NECK: Supple, no JVD. No thyroid enlargement. No LNs CARDIOVASCULAR: S1, S2 regular. No murmur RESPIRATION: Unlabored, equal air entry, breath sounds diminished in the bases. No rhonchi or crackles. No bronchial breathing. ABDOMEN: Soft, nontender . No guarding. no masses palpable. No ascites, No hepatosplenomegaly.Bowel sounds heard. LEGS: No edema. no swelling NERVOUS SYSTEM: Cranial N 2-12 grossly normal. No focal deficits.Strength and sensation grossly intact. Essential tremors. Skin: Warm and dry, no rash. Results CBC & Chem 7: 02/14/24 20:34 02/14/24 20:34 Labs: Abnormal Lab Results - Last 24 Hours (Table) 02/14/24 02/14/24 02/15/24 Range/Units 20:34 20:34 00:55 RBC 3.73 L (4.30-5.90) m/uL Hgb 10.8 L (13.0-17.5) gm/dL Hct 32.7 L (39.0-53.0) % Plt Count 135 L (150-450) k/uL PT 9.7 L (10.0-12.5) sec D-Dimer (<0.60) mg/L FEU Sodium 135 L (137-145) mmol/L BUN 24 H (9-20) mg/dL Glucose 114 H (74-99) mg/dL Total Protein 5.3 L (6.3-8.2) g/dL Albumin 3.3 L (3.5-5.0) g/dL 02/15/24 Range/Units 04:00 RBC (4.30-5.90) m/uL Hgb (13.0-17.5) gm/dL Hct (39.0-53.0) % Plt Count (150-450) k/uL PT (10.0-12.5) sec D-Dimer 1.69 H (<0.60) mg/L FEU Sodium (137-145) mmol/L BUN (9-20) mg/dL Glucose (74-99) mg/dL Total Protein (6.3-8.2) g/dL Albumin (3.5-5.0) g/dL Thrombosis Risk Factor Assmnt - Choose All That Apply Each Factor Represents 1 point: Obesity (BMI >25) Each Risk Factor Represents 3 Points: Age 75 years or older, History of DVT/PE Thrombosis Risk Factor Assessment Total Risk Factor Score: 7 Thrombosis Risk Factor Assessment Level: High Risk Assessment and Plan Assessment: Bibasilar infiltrates, possible bibasilar community-acquired pneumonia or probable atelectasis. Procalcitonin normal Elevated D-dimer, ruling out PE ,CTA pending Acute on chronic hypoxic respiratory failure, reports he wears anywhere from 2- 1/2 to 7 L/M IN nasal cannula at bedtime Anemia CAD Hypertension Essential tremors, follows with Dr. Chowdhury History of prostate cancer status post radiation, on testosterone Plan: Continue on current medication resume ,monitoring and symptomatic treatment. Blood cultures in progress, maintain ceftriaxone and azithromycin .evaluated by pulmonary with recommendations noted. Cardiology consulted regarding patient was a recent cardiac cath. CTA pending. patient follows with [facility] outpatient. Patient eager for discharge, feels better and is talking about possibly leaving AMA. Patient encouraged to stay for another 24 hours to allow workup to be completed. Patient left AMA. Discharge Medication List ALPRAZolam [Xanax] 2 mg PO HS 11/03/22 [History] Atorvastatin [Lipitor] 20 mg PO HS 11/03/22 [History] Omeprazole 20 mg PO BID 11/03/22 [History] lisinopriL [Lisinopril] 40 mg PO DAILY 11/03/22 [History] traZODone HCL 300 mg PO HS 11/03/22 [History] Gabapentin [Neurontin] 300 mg PO BID 02/25/23 [History] Naproxen Sodium [Naproxen Sodium ER] 375 mg PO BID PRN 02/25/23 [History] Nitroglycerin Sl Tabs [Nitrostat] 0.4 mg SL Q5M PRN 02/25/23 [History] Testosterone [Androgel 1.62%] 2 pump TRANSDERM HS 02/25/23 [History] Vitamin B Complex 1 cap PO DAILY 02/25/23 [History] FLUoxetine HCL [PROzac] 20 mg PO QAM 01/23/24 [History] Meclizine [Antivert] 25 mg PO DAILY PRN 01/23/24 [History] Promethazine [Phenergan] 25 mg PO HS PRN 01/23/24 [History] Propranolol HCl 80 mg PO BID 01/23/24 [History] hydrALAZINE HCL 25 mg PO TID PRN 01/26/24 [History] Azelastine HCl [Astelin Nasal [place]] 2 spray EA NOSTRIL BID 02/15/24 [History] Azithromycin [Zithromax Z Pack] 1 tab PO DIRECTED #6 tab 02/15/24 [Rx] Cholecalciferol [Vitamin D3 (25 Mcg = 1000 Iu)] 25 mcg PO DAILY 02/15/24 [History] Denosumab [Prolia] 60 mg SQ Q180D 02/15/24 [History] Fluticasone Propion/Salmeterol [Advair 250-50 Diskus] 1 puff INHALATION RT-BID 02/15/24 [History] Primidone [Mysoline] 25 mg PO BID 02/15/24 [History] Teriparatide [Forteo] 20 mcg SQ DAILY 02/15/24 [History] armodafiniL 250 mg PO QAM 02/15/24 [History] busPIRone HCl [Buspar] 5 mg PO DAILY 02/15/24 [History] The impression and plan of care has been dictated as directed. : I performed a history and examination of this patient, discussed the same with the dictator. I agree with the dictator's note ,documented as a scribe. Any additional findings or plans will be noted.
--- NOTE | 2024-02-15 14:49 | P.CRDCN ---
History of Present Illness Consult date: 02/15/24 Reason for Consult (text): CHF, recent cath History of present illness: This is a 83-year-old male patient of Dr. Pierre with past medical history of GERD, osteoporosis, hypertension, hyperlipidemia, prostate cancer, SDH 2019, peripheral neuropathy, Mnire's disease, narcolepsy, CAD, tremors. We have been asked to evaluate the patient for possible CHF and recent catheterization. Patient states that on Monday he had full body tremors that lasted for about 20 hours. Patient does have history of tremors and follows with his neurologist, Dr. Chowdhury. Patient states that he normally takes hydralazine for this. On Monday he fell out of bed he ended up crawling to the chair and was able to get up and make his breakfast. He checked his blood pressure and it was 76 over [address] He [address] Dr. Pierre's office and also contacted Dr. Scott and does not want to stay in the hospital. He is agreeable r. He spoke to Dr. Chowdhury or his office and was told to go into the hospital for evaluation. Patient is stating that he is going to go home today to be evaluated by cardiology. Blood pressure 107/67, heart rate 65, pulse ox 99% on 5 L nasal cannula. EKG: Sinus rhythm with right bundle branch block Chest x-ray: #1 mild bibasilar infiltrates. Correlate for subsegmental atelectasis. Developing pneumonia should be considered. #2 COPD with mild cardiomegaly ongoing diffuse interstitial density. CTA of the chest: No large central or definite lobar branch embolus. The segmental and more distal arterial branches are essentially nondiagnostic and emboli in these locations cannot be excluded on the basis of exam. COPD with mild emphysema. Pulmonary artery hypertension with diffuse septal lines and scattered groundglass as well as trace pleural effusions. Right hilar adenopathy measuring 1.9 cm. Laboratory studies: WBC 6.7, hemoglobin 10.8, platelet count 135. D-dimer 1.69. Sodium 135, potassium 4.1, BUN 24 creatinine 1.2. Troponin negative x 1. proBNP 1100. Procalcitonin 0.37. Influenza A, influenza B, Legionella, RSV, COVID-19 not detected. Home cardiac medications: Atorvastatin 20 mg at bedtime, hydralazine 25 mg 3 times daily as needed, lisinopril 40 mg daily, propranolol 80 mg twice daily. Cardiac catheterization performed on 01/26/2024 revealed relatively normal coronary arteries with 5 to 10% LAD stenosis. Elevated left-sided filling pressures. Lexiscan stress test performed 12/12/2023 revealed fixed defect inferior wall and small sized area of apical reversible ischemia. Echocardiogram performed 06/08/2022 revealed EF 60 to 65% Review Of Systems: At the time of my exam: CONSTITUTIONAL: Denies fever or chills. HEENT: Denies blurred vision, vision changes, or eye pain. Denies hemoptysis CARDIOVASCULAR: Denies chest pain. Denies orthopnea. Denies PND. Denies palpitations RESPIRATORY: Denies shortness of breath. GASTROINTESTINAL: Denies abdominal pain. Denies nausea or vomiting. HEMATOLOGIC: Denies bleeding disorders. GENITOURINARY: Denies any blood in urine. SKIN: Denies puritis. Denies rash. Physical examination: Gen: This is an 83-year-old male resting in bed and appears to be comfortable and in no acute distress VS: reviewed HEENT: Head is atraumatic, normocephalic. Pupils equal, round. Sclerae is anicteric. NECK: Supple. No JVD. LUNGS: Clear to auscultation. No wheezes or rhonchi. No intercostal retractions. HEART: Regular rate and rhythm. No murmur. ABDOMEN: Soft No tenderness. EXTREMITIES: No pedal edema. No calf tenderness. NEUROLOGICAL: Patient is awake, alert and oriented x3. Assessment: Shortness of breath possibly due to pneumonia and possible small component of chronic heart failure CAD Tremors GERD History of prostate cancer Hypertension Hyperlipidemia Peripheral neuropathy Plan: Resume patient's home cardiac medications Start patient on Lasix oral 20 mg daily Blood cultures status received. Further recommendations to follow based upon clinical course Thank you kindly for this consultation. Nurse practitioner note has been reviewed, I agree with documented findings and plan of care. Patient was seen and examined. Past Medical History Past Medical History: Cancer, Prostate Disorder Additional Past Medical History / Comment(s): ESSENTAILS TREMORS. PROSTATE CANCER. MENIERS. Narcolepsy. ASPIRATION PNEUMONIA (SOB AT NIGHT, O2@5-7L). broken ankle in [employer] History of Any Multi-Drug Resistant Organisms: None Reported Past Surgical History: Appendectomy, Back Surgery Additional Past Surgical History / Comment(s): L4-5 BACK SURGERY. INOPERABLE PROSTATE CANCER (RADIATION). LASIK. EVY ORCHIECTOMY. Past Anesthesia/Blood Transfusion Reactions: No Reported Reaction Past Psychological History: No Psychological Hx Reported Smoking Status: Never smoker Past Alcohol Use History: Occasional Past Drug Use History: None Reported Medications and Allergies Home Medications Medication Instructions Recorded Confirmed Type ALPRAZolam [Xanax] 2 mg PO HS 11/03/22 02/15/24 History Atorvastatin [Lipitor] 20 mg PO HS 11/03/22 02/15/24 History Omeprazole 20 mg PO BID 11/03/22 02/15/24 History lisinopriL [Lisinopril] 40 mg PO DAILY 11/03/22 02/15/24 History traZODone HCL 300 mg PO HS 11/03/22 02/15/24 History Gabapentin [Neurontin] 300 mg PO BID 02/25/23 02/15/24 History Naproxen Sodium [Naproxen Sodium 375 mg PO BID PRN 02/25/23 02/15/24 History ER] Nitroglycerin Sl Tabs [Nitrostat] 0.4 mg SL Q5M PRN 02/25/23 02/15/24 History Testosterone [Androgel 1.62%] 2 pump TRANSDERM HS 02/25/23 02/15/24 History Vitamin B Complex 1 cap PO DAILY 02/25/23 02/15/24 History FLUoxetine HCL [PROzac] 20 mg PO QAM 01/23/24 02/15/24 History Meclizine [Antivert] 25 mg PO DAILY PRN 01/23/24 02/15/24 History Promethazine [Phenergan] 25 mg PO HS PRN 01/23/24 02/15/24 History Propranolol HCl 80 mg PO BID 01/23/24 02/15/24 History hydrALAZINE HCL 25 mg PO TID PRN 01/26/24 02/15/24 History Azelastine HCl [Astelin Nasal 2 spray EA NOSTRIL BID 02/15/24 02/15/24 History [place]] Azithromycin [Zithromax Z Pack] 1 tab PO DIRECTED #6 tab 02/15/24 Rx Cholecalciferol [Vitamin D3 (25 25 mcg PO DAILY 02/15/24 02/15/24 History Mcg = 1000 Iu)] Denosumab [Prolia] 60 mg SQ Q180D 02/15/24 02/15/24 History Fluticasone Propion/Salmeterol 1 puff INHALATION RT-BID 02/15/24 02/15/24 History [Advair 250-50 Diskus] Primidone [Mysoline] 25 mg PO BID 02/15/24 02/15/24 History Teriparatide [Forteo] 20 mcg SQ DAILY 02/15/24 02/15/24 History armodafiniL 250 mg PO QAM 02/15/24 02/15/24 History busPIRone HCl [Buspar] 5 mg PO DAILY 02/15/24 02/15/24 History Allergies Allergy/AdvReac Type Severity Reaction Status Date / Time No Known Allergies Allergy Verified 02/15/24 10:34 Physical Exam Vitals: Vital Signs Temp Pulse Pulse Resp BP BP Pulse Ox 02/15/24 07:53 97.8 F 65 18 107/67 99 02/15/24 02:00 97.6 F 62 16 114/66 99 02/14/24 23:55 98.6 F 58 L 18 102/61 98 02/14/24 23:00 58 L 18 95/58 98 02/14/24 22:00 62 18 96/54 98 02/14/24 21:00 60 18 108/51 94 L 02/14/24 20:26 98.5 F 69 18 98/59 95 Intake and Output 02/14/24 02/15/24 02/15/24 22:59 06:59 14:59 Output Total 350 Balance -350 Output: Urine 350 Other: Voiding Method Urinal Weight 92.533 kg 92.533 kg Results 02/14/24 20:34 02/14/24 20:34 Cardiac Enzymes 02/14/24 02/14/24 Range/Units 20:34 20:34 AST 28 (17-59) U/L Troponin I <0.012 (0.000-0.034) ng/mL Coagulation 02/15/24 Range/Units 00:55 PT 9.7 L (10.0-12.5) sec APTT 22.4 (22.0-30.0) sec CBC 02/14/24 Range/Units 20:34 WBC 6.7 (3.8-10.6) k/uL RBC 3.73 L (4.30-5.90) m/uL Hgb 10.8 L (13.0-17.5) gm/dL Hct 32.7 L (39.0-53.0) % Plt Count 135 L (150-450) k/uL Comprehensive Metabolic Panel 02/14/24 Range/Units 20:34 Sodium 135 L (137-145) mmol/L Potassium 4.1 (3.5-5.1) mmol/L Chloride 100 (98-107) mmol/L Carbon Dioxide 30 (22-30) mmol/L BUN 24 H (9-20) mg/dL Creatinine 1.20 (0.66-1.25) mg/dL Glucose 114 H (74-99) mg/dL Calcium 9.1 (8.4-10.2) mg/dL AST 28 (17-59) U/L ALT 12 (4-49) U/L Alkaline Phosphatase 49 (38-126) U/L Total Protein 5.3 L (6.3-8.2) g/dL Albumin 3.3 L (3.5-5.0) g/dL Current Medications Generic Name Dose Route Start Last Admin Trade Name Freq PRN Reason Stop Dose Admin Alprazolam 2 mg 02/15/24 01:52 02/15/24 02:23 Alprazolam 1 Mg Tab PO 2 mg HS PRN Administration Anxiety Atorvastatin Calcium 20 mg 02/16/24 09:00 Atorvastatin 20 Mg Tab PO QAM [facility] Azithromycin 500 mg 02/15/24 09:00 02/15/24 09:19 Azithromycin 500 Mg Tab PO 02/16/24 09:01 500 mg DAILY [facility] Administration Protocol Fluoxetine HCl 20 mg 02/15/24 09:45 Fluoxetine Hcl 20 Mg Cap PO QAM [facility] Fluticasone Propionate 2 spray 02/15/24 01:55 02/15/24 02:23 Fluticasone Nasal 50mcg/[place] 16gm Btl EA NOSTRIL 2 spray BID PRN Administration Allergy Symptoms Ceftriaxone Sodium 2 gm/ 50 mls @ 100 mls/hr 02/15/24 09:00 02/15/24 09:21 Sodium Chloride IVPB 02/18/24 09:29 100 mls/hr Q24HR [facility] MANUEL Administration Protocol Sodium Chloride 1,000 mls @ 75 mls/hr 02/15/24 17:00 Saline 0.9% IV .[id number] [facility]UEL Lisinopril 40 mg 02/15/24 09:45 Lisinopril 20 Mg Tab PO 02/16/24 09:00 QAM [facility] Lisinopril 40 mg 02/16/24 09:00 Lisinopril 20 Mg Tab PO QAM [facility] Miscellaneous Information 1 each 02/14/24 22:44 Pneumonia Protocol Utilized 1 Each Misc PO ONCE PRN Per Protocol Trazodone HCl 300 mg 02/15/24 21:00 Trazodone Hcl 100 Mg Tab PO HS [facility] MANUEL Intake and Output 02/14/24 02/15/24 02/15/24 22:59 06:59 14:59 Output Total 350 Balance -350 Output: Urine 350 Other: Voiding Method Urinal Weight 92.533 kg 92.533 kg 02/14/24 20:34 02/14/24 20:34
[2024-02-15] MEDS ORDERED: SODIUM CHLORIDE 0.9% 1,000 ML IV SCH (17:00)
[2024-02-15] MEDS ORDERED: traZODone HCL 100 MG TAB PO SCH (21:00)
[2024-02-16] MEDS ORDERED: ATORVASTATIN 20 MG TAB PO SCH (09:00)
[2024-02-16] MEDS ORDERED: lisinopriL 20 MG TAB PO SCH (09:00)
== END 2024-02-15 12:50 | disposition left against medical advice (07) | DRG 193 ==
LOC: EC 20:23 → 4SSUR 22:41
PROVIDERS: ADMIT Family Medicine; ATTEND Family Medicine
DX: J18.9 Pneumonia, unspecified organism (principal); J96.21 Acute and chronic respiratory failure with hypoxia; I27.21 Secondary pulmonary arterial hypertension; I50.9 Heart failure, unspecified; I11.0 Hypertensive heart disease with heart failure; I25.10 Atherosclerotic heart disease of native coronary artery without angina pectoris; G25.0 Essential tremor; K21.9 Gastro-esophageal reflux disease without esophagitis; E78.5 Hyperlipidemia, unspecified; G62.9 Polyneuropathy, unspecified; D64.9 Anemia, unspecified; I44.0 Atrioventricular block, first degree; I45.10 Unspecified right bundle-branch block; G47.33 Obstructive sleep apnea (adult) (pediatric); J43.9 Emphysema, unspecified; M81.0 Age-related osteoporosis without current pathological fracture; Z85.46 Personal history of malignant neoplasm of prostate; Z92.3 Personal history of irradiation; Z79.51 Long term (current) use of inhaled steroids; Z79.899 Other long term (current) drug therapy
CPT/HCPCS: 36415; 71046; 71275; 80053; 83605; 83735; 83880; 84145; 84484; 85025; 85379; 85610; 85730; 87040; 87449; 87636; 93005; 96360; 99285

== ENCOUNTER 2024-03-14 14:10 | Observation (INO) | payer MEDICARE ==
[2024-03-14 15:00] LABS: Basophils % (A) 0 %; Eosinophils # (A) 0.2 k/uL (0-0.7); Eosinophils % (A) 3 %; HCT 35.5 % (39.0-53.0); HGB 11.8 gm/dL (13.0-17.5); Lymphocytes # (A) 1.2 k/uL (1.0-4.8); Lymphocytes % (A) 18 %; MCH 29.3 pg (25.0-35.0); MCHC 33.2 g/dL (31.0-37.0); MCV 88.4 fL (80.0-100.0); Mean Platelet Volume 8.4; Monocytes # (A) 0.6 k/uL (0-1.0); Monocytes % (A) 10 %; Neutrophils # (A) 4.4 k/uL (1.3-7.7); Neutrophils % (A) 67 %; Platelet Count 128 k/uL (150-450); RBC 4.01 m/uL (4.30-5.90); RDW 14.6 % (11.5-15.5); WBC 6.6 k/uL (3.8-10.6)
[2024-03-14] MEDS: SODIUM CHLORIDE 0.9% 1,000 ML IV STA ×2 (15:00→15:28)
[2024-03-14] MEDS: ALPRAZolam 1 MG TAB PO STA (15:00)
[2024-03-14 15:01] LABS: Appearance,Urine Clear (Clear); Bilirubin,Urine Negative (Negative); Blood,Urine Negative (Negative); Color,Urine Yellow; Glucose,Urine (UA) Negative (Negative); Ketones,Urine Negative (Negative); Leukocyte Esterase,Urine Negative (Negative); Nitrite,Urine Negative (Negative); PH, Urine 5.5 (5.0-8.0); Protein,Urine Trace (Negative); Specific Gravity,Urine 1.015 (1.001-1.035); Urobilinogen,Urine <2.0 mg/dL (<2.0)
[2024-03-14 15:11] LABS: Amphetamine Screen,Urine Not Detected (NotDetected); Benzodiazepines Screen,Urine Detected (NotDetected); Cocaine Screen,Urine Not Detected (NotDetected); Methadone Screen, Urine Not Detected (NotDetected); Opiate Screen,Urine Not Detected (NotDetected); Phencyclidine Screen,Urine Not Detected (NotDetected); Tricyclic Antidepressant,Urine Not Detected (NotDetected); Urn Cannabinoid Scrn Not Detected (NotDetected)
[2024-03-14 15:12] LABS: Barbiturate Screen,Urine Not Detected (NotDetected); Oxycodone Screen, Urine Not Detected (NotDetected)
[2024-03-14 15:17] LABS: ALT 18 U/L (4-49); AST 30 U/L (17-59); African American GFR (CKD) 83 (>60 ml/min/1.73 sqM); Albumin 3.6 g/dL (3.5-5.0); Alcohol <10 mg/dL; Alkaline Phosphatase 68 U/L (38-126); Anion Gap 3 mmol/L; Blood Urea Nitrogen 15 mg/dL (9-20); Calcium 9.1 mg/dL (8.4-10.2); Carbon Dioxide 31 mmol/L (22-30); Chloride 95 mmol/L (98-107); Glucose 114 mg/dL (74-99); Magnesium 1.6 mg/dL (1.6-2.3); Non-African American GFR(CKD) 72 (>60 ml/min/1.73 sqM); Potassium 4.2 mmol/L (3.5-5.1); Sodium 129 mmol/L (137-145); Total Bilirubin 0.4 mg/dL (0.2-1.3); Total Protein 5.7 g/dL (6.3-8.2)
--- NOTE | 2024-03-14 15:28 | ED ---
General Adult HPI - General Chief complaint: Dizziness Stated complaint: Dizziness Time Seen by Provider: 03/14/24 14:40 Source: patient, RN notes reviewed, old records reviewed Mode of arrival: ambulatory Limitations: no limitations - History of Present Illness Initial comments: Patient is an 83-year-old male who presents emergency department for lightheadedness this morning and near syncopal episode. Patient states he felt lightheaded when he stood up. Is a daily alcohol user, drinks 1 glass of wine and 1 shot per day. Denies any history of withdrawal symptoms. Has a history of chronic essential tremor. States he stood up to make lunch earlier and felt lightheaded and had to sit back down. Denies any room spinning sensation. E ndorses mild nausea. States his essential tremor has gotten worse over the last year and feels like it is worse today. Denies any fevers or chills. Mild nasal congestion. Denies chest pain or shortness of breath. Denies abdominal pain. He has no other acute complaints at this time. Patient does wear nasal cannula oxygen chronically. He is asking for a Xanax at this time. States this usually helps with his symptoms. Presents for further evaluation at this time. - Related Data Home Medications Medication Instructions Recorded Confirmed ALPRAZolam [Xanax] 2 mg PO HS 11/03/22 03/14/24 Atorvastatin [Lipitor] 20 mg PO HS 11/03/22 03/14/24 Omeprazole 20 mg PO BID 11/03/22 03/14/24 lisinopriL [Lisinopril] 40 mg PO DAILY 11/03/22 03/14/24 traZODone HCL 300 mg PO HS 11/03/22 03/14/24 Gabapentin [Neurontin] 300 mg PO BID 02/25/23 03/14/24 Naproxen Sodium [Naproxen Sodium 375 mg PO BID PRN 02/25/23 03/14/24 ER] Nitroglycerin Sl Tabs [Nitrostat] 0.4 mg SL Q5M PRN 02/25/23 03/14/24 Testosterone [Androgel 1.62%] 2 pump TRANSDERM HS 02/25/23 03/14/24 Vitamin B Complex 1 cap PO DAILY 02/25/23 03/14/24 FLUoxetine HCL [PROzac] 20 mg PO DAILY 01/23/24 03/14/24 Meclizine [Antivert] 25 mg PO DAILY PRN 01/23/24 03/14/24 Propranolol HCl 80 mg PO BID 01/23/24 03/14/24 hydrALAZINE HCL 25 mg PO TID PRN 01/26/24 03/14/24 Azelastine HCl [Astelin Nasal 2 spray EA NOSTRIL BID 02/15/24 03/14/24 [place]] Cholecalciferol [Vitamin D3 (25 25 mcg PO DAILY 02/15/24 03/14/24 Mcg = 1000 Iu)] Denosumab [Prolia] 60 mg SQ Q180D 02/15/24 03/14/24 Fluticasone Propion/Salmeterol 1 puff INHALATION RT-BID 02/15/24 03/14/24 [Advair 250-50 Diskus] Primidone [Mysoline] 25 mg PO BID 02/15/24 03/14/24 Teriparatide [Forteo] 20 mcg SQ DAILY 02/15/24 03/14/24 armodafiniL 250 mg PO DAILY 02/15/24 03/14/24 busPIRone HCl [Buspar] 5 mg PO DAILY 02/15/24 03/14/24 Promethazine HCl 12.5 mg PO HS PRN 03/14/24 03/14/24 Allergies Allergy/AdvReac Type Severity Reaction Status Date / Time No Known Allergies Allergy Verified 03/14/24 16:32 Review of Systems ROS Statement: Those systems with pertinent positive or pertinent negative responses have been documented in the HPI. Review of Systems: CONST: Denies fever EYES: Denies blurry vision ENT: Denies nasal congestion C/V: Denies Chest pain RESP: Denies shortness of breath GI: Denies abdominal pain : Denies dysuria SKIN: Denies rash. MSK: Denies joint pain. NEURO: Denies headache ROS Other: All systems not noted in ROS Statement are negative. Past Medical History Past Medical History: Cancer, Prostate Disorder Additional Past Medical History / Comment(s): ESSENTAILS TREMORS. PROSTATE CANCER. MENIERS. Narcolepsy. ASPIRATION PNEUMONIA (SOB AT NIGHT, O2@5-7L). br oken ankle in [employer] History of Any Multi-Drug Resistant Organisms: None Reported Past Surgical History: Appendectomy, Back Surgery Additional Past Surgical History / Comment(s): L4-5 BACK SURGERY. INOPERABLE PROSTATE CANCER (RADIATION). LASIK. EVY ORCHIECTOMY. Past Anesthesia/Blood Transfusion Reactions: No Reported Reaction Past Psychological History: No Psychological Hx Reported Smoking Status: Never smoker Past Alcohol Use History: Daily Past Drug Use History: None Reported General Exam - General Exam Comments Initial Comments: General: Appears in no acute distress. HEAD: Normal with no signs of head trauma. EYES: PERRLA, EOMI, conjunctiva normal, no discharge. Pupils are 2 to 3 mm and equal bilaterally. ENT: Hearing grossly intact, normal oropharynx. Mildly dry mucous membranes. RESPIRATORY: Clear breath sounds bilaterally. No wheezes, rales, or rhonchi. C/V: Regular rate and rhythm. S1 and S2 auscultated, peripheral pulses 2+ and intact throughout ABD: Abd is soft, nontender, nondistended EXT: Normal range of motion, no obvious deformity SKIN: No rashes or lesions observed on exposed skin. NEURO: Alert and oriented x 4. Cranial nerves II-XII intact. No focal sensory or strength deficits. Mild essential tremor present. Limitations: no limitations Course Vital Signs 03/14/24 03/14/24 03/14/24 14:17 14:58 17:09 Temperature 98.4 F Pulse Rate 73 66 59 L Respiratory 18 18 18 Rate Blood Pressure 131/74 130/66 124/69 O2 Sat by Pulse 95 97 96 Oximetry Medical Decision Making - Medical Decision Making Was pt. sent in by a medical professional or institution (, PA, BARBER SHOP MANAGER, urgent care, hospital, or penitentiary...) When possible be specific @ -No Did you speak to anyone other than the patient for history (EMS, parent, family, police, friend...)? What history was obtained from this source @ -No Did you review nursing and triage notes (agree or disagree)? Why? @ -I reviewed and agree with nursing and triage notes Were old charts reviewed (outside hosp., previous admission, EMS record, old EKG, old radiological studies, urgent care reports/EKG's, penitentiary records)? Report findings @ -Reviewed EKG from January 2024. No obvious acute change compared with today's EKG Differential Diagnosis (chest pain, altered mental status, abdominal pain women, abdominal pain men, vaginal bleeding, weakness, fever, dyspnea, syncope, headache, dizziness, GI bleed, back pain, seizure, CVA, palpatations, mental health, musculoskeletal)? @ -Dehydration, orthostatic hypotension, chronic essential tremor, alcohol use. This list is not all inclusive. EKG interpreted by me (3pts min.). @ -As above X-rays interpreted by me (1pt min.). @ -Chest x-ray shows no obvious acute cardiopulmonary process. CT interpreted by me (1pt min.). @ -None done U/S interpreted by me (1pt. min.). @ -None done What testing was considered but not performed or refused? (CT, X-rays, U/S, labs)? Why? @ -None What meds were considered but not given or refused? Why? @ -None Did you discuss the management of the patient with other professionals (professionals i.e. , PA, BARBER SHOP MANAGER, lab, RT, psych nurse, long term care social worker, machine woodworking sander, teacher, bsa/aml compliance officer, case operator)? Give summary @ -I spoke with the admitting provider, Dr. Ferris who is covering for Dr. Naranjo who accepted the admission. Was smoking cessation discussed for >3mins.? @ -No Was critical care preformed (if so, how long)? @ -No Were there social determinants of health that impacted care today? How? (Homelessness, low income, unemployed, alcoholism, drug addiction, transportation, low edu. Level, literacy, decrease access to med. care, residential, rehab)? @ -No Was there de-escalation of care discussed even if they declined (Discuss DNR or withdrawal of care, Hospice)? DNR status @ -No What co-morbidities impacted this encounter? (DM, HTN, Smoking, COPD, CAD, Cancer, CVA, ARF, Chemo, Hep., AIDS, mental health diagnosis, sleep apnea, morbid obesity)? @ -Essential tremor Was patient admitted / discharged? Hospital course, mention meds given and r oute, prescriptions, significant lab abnormalities, going to OR and other pertinent info. @ -Patient presents emergency department complaining of near syncopal episode at home and chronic essential tremor. Drinks alcohol on a daily basis. He is chronically on oxygen. Presents for further evaluation at this time. No fainting or injuries. Will obtain general workup. He was in agreement this p neli. Given multiple fluid boluses, Toradol for mild headache, as well as a dose of his normal home Xanax. He was in agreement this plan. EKG shows no signs of acute ischemia. Laboratory studies are remarkable for mild hyponatremia of 129. Patient has chronic anemia within baseline. Alcohol level is negative. Remainder the workup unremarkable. Chest x-ray unremarkable. On reevaluation, patient is still concerned as he nearly fell at home and lives at home by himself. I discussed with him, and we will admit for IV hydration due to the patient being a fall risk upon discharge. Physical therapy and Occupational Therapy will be consulted. He was in agreement this plan. I spoke with the admitting provider, Dr. Ferris who is covering for Dr. Naranjo who accepted the admission. Undiagnosed new problem with uncertain prognosis? @ -No Drug Therapy requiring intensive monitoring for toxicity (Heparin, Nitro, Insulin, Cardizem)? @ -No Were any procedures done? @ -No Diagnosis/symptom? @ -Near syncope, dehydration Acute, or Chronic, or Acute on Chronic? @ -Acute Uncomplicated (without systemic symptoms) or Complicated (systemic symptoms)? @ -Complicated Side effects of treatment? @ -None Exacerbation, Progression, or Severe Exacerbation] @ -No Poses a threat to life or bodily function? @ -Possibly, yes as it can result in a fall which can be debilitating. - Lab Data Result diagrams: 03/14/24 14:53 03/14/24 14:53 Lab Results 03/14/24 03/14/24 03/14/24 Range/Units 14:53 14:53 14:53 WBC 6.6 (3.8-10.6) k/uL RBC 4.01 L (4.30-5.90) m/uL Hgb 11.8 L (13.0-17.5) gm/dL Hct 35.5 L (39.0-53.0) % MCV 88.4 (80.0-100.0) fL MCH 29.3 (25.0-35.0) pg MCHC 33.2 (31.0-37.0) g/dL RDW 14.6 (11.5-15.5) % Plt Count 128 L (150-450) k/uL MPV 8.4 Neutrophils % 67 % Lymphocytes % 18 % Monocytes % 10 % Eosinophils % 3 % Basophils % 0 % Neutrophils # 4.4 (1.3-7.7) k/uL Lymphocytes # 1.2 (1.0-4.8) k/uL Monocytes # 0.6 (0-1.0) k/uL Eosinophils # 0.2 (0-0.7) k/uL Basophils # 0.0 (0-0.2) k/uL Sodium 129 L (137-145) mmol/L Potassium 4.2 (3.5-5.1) mmol/L Chloride 95 L (98-107) mmol/L Carbon Dioxide 31 H (22-30) mmol/L Anion Gap 3 mmol/L BUN 15 (9-20) mg/dL Creatinine 0.98 (0.66-1.25) mg/dL Est GFR (CKD-EPI)AfAm 83 (>60 ml/min/1.73 sqM) Est GFR (CKD-EPI)NonAf 72 (>60 ml/min/1.73 sqM) Glucose 114 H (74-99) mg/dL Calcium 9.1 (8.4-10.2) mg/dL Magnesium 1.6 (1.6-2.3) mg/dL Total Bilirubin 0.4 (0.2-1.3) mg/dL AST 30 (17-59) U/L ALT 18 (4-49) U/L Alkaline Phosphatase 68 (38-126) U/L Total Protein 5.7 L (6.3-8.2) g/dL Albumin 3.6 (3.5-5.0) g/dL Urine Color Yellow Urine Appearance Clear (Clear) Urine pH 5.5 (5.0-8.0) Ur Specific [place] 1.015 (1.001-1.035) Urine Protein Trace H (Negative) Urine Glucose (UA) Negative (Negative) Urine Ketones Negative (Negative) Urine Blood Negative (Negative) Urine Nitrite Negative (Negative) Urine Bilirubin Negative (Negative) Urine Urobilinogen <2.0 (<2.0) mg/dL Ur Leukocyte Esterase Negative (Negative) Urine Opiates Screen Not Detected (NotDetected) Ur Oxycodone Screen Not Detected (NotDetected) Urine Methadone Screen Not Detected (NotDetected) Ur Barbiturates Screen Not Detected (NotDetected) U Tricyclic Antidepress Not Detected (NotDetected) Ur Phencyclidine Scrn Not Detected (NotDetected) Ur Amphetamines Screen Not Detected (NotDetected) U Methamphetamines Scrn Not Detected (NotDetected) U Benzodiazepines Scrn Detected H (NotDetected) Urine Cocaine Screen Not Detected (NotDetected) U Marijuana (THC) Screen Not Detected (NotDetected) Serum Alcohol <10 mg/dL Influenza Type A (PCR) (Not Detectd) Influenza Type B (PCR) (Not Detectd) RSV (PCR) (Not Detectd) SARS-CoV-2 (PCR) (Not Detectd) 03/14/24 Range/Units 14:53 WBC (3.8-10.6) k/uL RBC (4.30-5.90) m/uL Hgb (13.0-17.5) gm/dL Hct (39.0-53.0) % MCV (80.0-100.0) fL MCH (25.0-35.0) pg MCHC (31.0-37.0) g/dL RDW (11.5-15.5) % Plt Count (150-450) k/uL MPV Neutrophils % % Lymphocytes % % Monocytes % % Eosinophils % % Basophils % % Neutrophils # (1.3-7.7) k/uL Lymphocytes # (1.0-4.8) k/uL Monocytes # (0-1.0) k/uL Eosinophils # (0-0.7) k/uL Basophils # (0-0.2) k/uL Sodium (137-145) mmol/L Potassium (3.5-5.1) mmol/L Chloride (98-107) mmol/L Carbon Dioxide (22-30) mmol/L Anion Gap mmol/L BUN (9-20) mg/dL Creatinine (0.66-1.25) mg/dL Est GFR (CKD-EPI)AfAm (>60 ml/min/1.73 sqM) Est GFR (CKD-EPI)NonAf (>60 ml/min/1.73 sqM) Glucose (74-99) mg/dL Calcium (8.4-10.2) mg/dL Magnesium (1.6-2.3) mg/dL Total Bilirubin (0.2-1.3) mg/dL AST (17-59) U/L ALT (4-49) U/L Alkaline Phosphatase (38-126) U/L Total Protein (6.3-8.2) g/dL Albumin (3.5-5.0) g/dL Urine Color Urine Appearance (Clear) Urine pH (5.0-8.0) Ur Specific [place] (1.001-1.035) Urine Protein (Negative) Urine Glucose (UA) (Negative) Urine Ketones (Negative) Urine Blood (Negative) Urine Nitrite (Negative) Urine Bilirubin (Negative) Urine Urobilinogen (<2.0) mg/dL Ur Leukocyte Esterase (Negative) Urine Opiates Screen (NotDetected) Ur Oxycodone Screen (NotDetected) Urine Methadone Screen (NotDetected) Ur Barbiturates Screen (NotDetected) U Tricyclic Antidepress (NotDetected) Ur Phencyclidine Scrn (NotDetected) Ur Amphetamines Screen (NotDetected) U Methamphetamines Scrn (NotDetected) U Benzodiazepines Scrn (NotDetected) Urine Cocaine Screen (NotDetected) U Marijuana (THC) Screen (NotDetected) Serum Alcohol mg/dL Influenza Type A (PCR) Not Detected (Not Detectd) Influenza Type B (PCR) Not Detected (Not Detectd) RSV (PCR) Not Detected (Not Detectd) SARS-CoV-2 (PCR) Not Detected (Not Detectd) - EKG Data -: EKG Interpreted by Me EKG Comments: 12-lead Electrocardiogram Interpretation Note EKG was reviewed and interpreted by myself. 12-lead ECG performed at 1444 is interpreted by me as revealing sinus rhythm with right bundle branch block at a rate of 69 beats per minute. [place] is normal. HI interval is 185 ms, QRS duration is 145 ms, QTc is 472 ms.. There were no ST or T wave abnormalities to suggest myocardial ischemia or injury. R wave progression across the precordium was satisfactory. By my interpretation this EKG is non-diagnostic for acute ischemia. Disposition Clinical Impression: Near syncope, Dehydration Disposition: ADMITTED IP TO THIS HOSP Condition: Stable Time of Disposition: 16:15
[2024-03-14] MEDS: KETOROLAC 15 MG/ML 1 ML VIAL IVP STA (15:30)
--- NOTE | 2024-03-14 16:05 | XR ---
EXAMINATION TYPE: XR chest 2V DATE OF EXAM: 03/14/2024 3:41 PM COMPARISON: Previous chest radiograph 02/15/2024. CLINICAL INDICATION: Male, 83 years old with history of dizzy; [facility] TECHNIQUE: XR chest 2V Frontal and lateral views of the chest. FINDINGS: Hepatomegaly mild pulmonary vascular congestive changes. No sizable pleural effusion. No pneumothorax. No acute focal consolidation. No acute osseous and amount. IMPRESSION: Cardiomegaly and pulmonary vascular congestive changes. [facility], , 03/14/2024 4:02 PM
[2024-03-14] MEDS ORDERED: ACETAMINOPHEN TAB 325 MG TAB PO PRN (16:40)
[2024-03-14] MEDS ORDERED: ONDANSETRON 4 MG/2 ML VIAL IVP PRN (16:40)
[2024-03-14] MEDS ORDERED: NALOXONE 0.4 MG/ML 1 ML VIAL IV PRN (16:40)
[2024-03-14] MEDS ORDERED: MECLIZINE 25 MG TAB PO PRN (16:41)
[2024-03-14] MEDS ORDERED: hydrALAZINE HCL 25 MG TAB PO PRN (16:41)
[2024-03-14] MEDS ORDERED: PROMETHAZINE 25 MG TAB PO PRN (16:41)
[2024-03-14] MEDS: SODIUM CHLORIDE 0.9% 1,000 ML IV SCH (17:12)
[2024-03-14 20:52] VITALS: RESP 16
[2024-03-14] MEDS: ATORVASTATIN 20 MG TAB PO SCH (20:52)
[2024-03-14] MEDS: traZODone HCL 100 MG TAB PO SCH (20:52)
[2024-03-14] MEDS: GABAPENTIN 300 MG CAP PO SCH (20:53)
[2024-03-14] MEDS: PROPRANOLOL 40 MG TAB PO SCH (20:53)
[2024-03-14] MEDS: PRIMIDONE 25 MG TAB PO SCH (20:54)
[2024-03-14] MEDS: SYMBICORT 80-4.5 MCG INHALER INHALATION SCH (22:15)
[2024-03-15] MEDS: PANTOPRAZOLE 40 MG TABLET PO SCH (06:22)
[2024-03-15] MEDS: busPIRone HCl 5 MG TAB PO SCH (08:01)
[2024-03-15] MEDS: lisinopriL 20 MG TAB PO SCH (08:01)
[2024-03-15] MEDS: FLUoxetine HCL 20 MG CAP PO SCH (08:01)
[2024-03-15 09:43] VITALS: PULSE 65
[2024-03-15 10:36] LABS: Basophils # (A) 0.02 X 10*3/uL (0.00-0.10); Basophils % (A) 0.5 %; Eosinophils # (A) 0.16 X 10*3/uL (0.04-0.35); Eosinophils % (A) 3.8 %; HCT 32.9 % (39.6-50.0); HGB 10.4 g/dL (13.0-17.0); Lymphocytes # (A) 0.81 X 10*3/uL (0.90-5.00); Lymphocytes % (A) 19.3 %; MCHC 31.6 g/dL (32.0-37.0); MCV 88.7 FL (80.0-97.0); Mean Platelet Volume 11.8 FL (9.5-12.2); Monocytes # (A) 0.59 X 10*3/uL (0.20-1.00); Monocytes % (A) 14.1 %; NRBC Per 100 WBC 0 X 10*3/uL (0.00-0.01); Neutrophils # (A) 2.59 X 10*3/uL (1.80-7.70); Neutrophils % (A) 61.8 %; Platelet Count 101 X 10*3/uL (140-440); RBC 3.71 X 10*6/uL (4.40-5.60); RDW 15.9 % (11.5-14.5); WBC 4.19 X 10*3/uL (4.50-10.00)
[2024-03-15 10:49] LABS: ALT 11 U/L (10-49); AST 22 U/L (14-35); Albumin 3.5 g/dL (3.8-4.9); Albumin/Globulin Ratio 2.69 Ratio (1.60-3.17); Alkaline Phosphatase 59 U/L (41-126); Blood Urea Nitrogen 12.5 mg/dL (9.0-27.0); Calcium 9.1 mg/dL (8.7-10.3); Carbon Dioxide 28.1 mmol/L (21.6-31.8); Chloride 100 mmol/L (96-109); Globulin 1.3 g/dL (1.6-3.3); Glucose 96 mg/dL (70-110); Potassium 4.6 mmol/L (3.5-5.5); Sodium 136 mmol/L (135-145); Total Bilirubin 0.3 mg/dL (0.3-1.2); Total Protein 4.8 g/dL (6.2-8.2)
[2024-03-15] MEDS: OXYMETAZOLINE 0.05% NASL SPRAY 1 SPRAY BOTTLE NASAL PRN (12:26)
[2024-03-15] MEDS ORDERED: ACETAMINOPHEN TAB 325 MG TAB PO PRN (13:48)
[2024-03-15 14:17] VITALS: BP 149/86; TEMP 98.4
[2024-03-15] MEDS: BUTALB/APAP/CAFF 50-325-40MG TAB PO PRN (14:53)
--- NOTE | 2024-03-15 15:05 | P.CRDCN ---
History of Present Illness Consult date: 03/15/24 History of present illness: History of Present Illness: The patient is an 83-year-old male, followed by Dr. Pierre with history of hypertension, hyperlipidemia and history of tremors. He has been followed by Dr. Chowdhury in that regard and noted that the tremors are getting worse. He has noted a spike in the blood pressure when his tremors are worse. He has underwen t coronary angiography in January of this year and had mild intimal disease in the LAD. The patient has dyspnea on exertion but denies any chest discomfort. He has dizziness but no palpitations. He has peripheral edema in the past. He has no history of myocardial infarction or malignant arrhythmia. On presentation his EKG showed sinus mechanism with right bundle branch block that was documented in the past. His troponin were negative. His LV function has been normal in the past. Medications: Lipitor 20 mg daily, lisinopril 40 mg daily, propranolol 80 mg twice a day, hydralazine on a as needed basis, Naprosyn, Antivert, omeprazole Review of Systems: Respiratory: He has mild dyspnea but no recent wheezing or cough GI: No nausea or vomiting . No history of peptic ulcer disease. No recent GI bleed. : No hematuria or dysuria. Nervous System: He has dizziness and tremors, evaluated by Dr. Chowdhury Physical Examination: 83-year-old male, alert oriented no apparent distress,Blood pressure 126/70, Heart rate 60 Head: Normocephalic. Eyes: Sclerae nonicteric. Neck: Good carotid upstroke, no bruit, no jugular venous distention. Lungs: Clear to auscultation. Heart: Regular rate and rhythm, S1-S2, no S3, no rub. No murmur. Abdomen: Soft nontender, positive bowel sounds no organomegaly. Extremities: 1+ edema, intact distal pulses. Labs: Hemoglobin 10.4, potassium 4.6, BUN 12.5, creatinine 1.0. EKG: EKG sinus mechanism with right bundle branch block, noted in the past. Impression: 1. Dizziness with no evidence of arrhythmia. Could be related to the fact that the patient uses hydralazine whenever his blood pressure rises 2. Mild CAD 3. Essential tremors 4. History of hypertension Plan: 1. Stop hydralazine as needed 2. Continue other medications 3. Increase physical activity 4. Follow-up as an outpatient with Dr. Pierre 5. We will see him on as-needed basis, please feel free to call us for any question Past Medical History Past Medical History: Cancer, Prostate Disorder Additional Past Medical History / Comment(s): ESSENTAILS TREMORS. PROSTATE CANCER. MENIERS. Narcolepsy. ASPIRATION PNEUMONIA (SOB AT NIGHT, O2@5-7L). broken ankle in [employer] History of Any Multi-Drug Resistant Organisms: None Reported Past Surgical History: Appendectomy, Back Surgery Additional Past Surgical History / Comment(s): L4-5 BACK SURGERY. INOPERABLE PROSTATE CANCER (RADIATION). LASIK. EVY ORCHIECTOMY. Past Anesthesia/Blood Transfusion Reactions: No Reported Reaction Past Psychological History: No Psychological Hx Reported Smoking Status: Never smoker Past Alcohol Use History: Daily Past Drug Use History: None Reported Medications and Allergies Home Medications Medication Instructions Recorded Confirmed Type ALPRAZolam [Xanax] 2 mg PO HS@189911/03/22 03/14/24 History Atorvastatin [Lipitor] 20 mg PO DAILY@0711/03/22 03/14/24 History Omeprazole 20 mg PO BID@0700,189911/03/22 03/14/24 History lisinopriL [Lisinopril] 40 mg PO DAILY@0711/03/22 03/14/24 History traZODone HCL 300 mg PO HS@189911/03/22 03/14/24 History Gabapentin [Neurontin] 300 mg PO BID@0700,189902/25/23 03/14/24 History Naproxen Sodium [Naproxen Sodium 375 mg PO BID PRN 02/25/23 03/14/24 History ER] Nitroglycerin Sl Tabs [Nitrostat] 0.4 mg SL Q5M PRN 02/25/23 03/14/24 History Testosterone [Androgel 1.62%] 2 pump TRANSDERM HS@189902/25/23 03/14/24 History Vitamin B Complex 1 cap PO HS@189902/25/23 03/14/24 History Meclizine [Antivert] 25 mg PO DAILY PRN 01/23/24 03/14/24 History Propranolol HCl 80 mg PO BID@0700,189901/23/24 03/14/24 History hydrALAZINE HCL 25 mg PO TID PRN 01/26/24 03/14/24 History Azelastine HCl [Astelin Nasal 2 spray EA NOSTRIL BID@0700,1900 02/15/24 03/14/24 History [place]] Cholecalciferol [Vitamin D3 (25 25 mcg PO HS@1900 02/15/24 03/14/24 History Mcg = 1000 Iu)] Fluticasone Propion/Salmeterol 1 puff INHALATION RT-BID@0700,1900 02/15/24 03/14/24 History [Advair 250-50 Diskus] armodafiniL 250 mg PO DAILY@0700 02/15/24 03/14/24 History Multivitamins, Thera [Multivitamin 1 tab PO HS@19003/14/24 03/14/24 History (formulary)] Promethazine HCl 12.5 mg PO HS PRN 03/14/24 03/14/24 History Allergies Allergy/AdvReac Type Severity Reaction Status Date / Time No Known Allergies Allergy Verified 03/14/24 16:32 Physical Exam Vitals: Vital Signs Temp Pulse Pulse Pulse Pulse Pulse Resp 03/15/24 14:16 98.4 F 65 16 03/15/24 09:15 62 65 65 03/15/24 07:00 97.8 F 63 16 03/15/24 03:30 97.4 F L 63 16 03/15/24 02:00 97.4 F L 63 16 03/14/24 22:00 97.5 F L 60 16 03/14/24 20:46 97.8 F 65 16 03/14/24 18:32 97.7 F 62 18 03/14/24 17:09 59 L 18 BP BP BP BP BP Pulse Ox FiO2 03/15/24 14:16 149/86 98 03/15/24 09:15 126/72 131/65 125/69 96 03/15/24 07:00 120/72 93 L 03/15/24 03:30 95/60 98 03/15/24 02:00 95/60 98 03/14/24 22:00 120/71 93 L 03/14/24 20:46 133/80 93 L 03/14/24 18:32 125/80 99 03/14/24 17:09 124/69 96 Intake and Output 11/28/24 11/29/24 11/29/24 22:59 06:59 14:59 Intake Total 560 240 Output Total 100 Balance 560 140 Intake: Oral 560 240 Output: Urine 100 Other: # Voids 3 # Bowel Movements 0 Weight 95.254 kg Results 03/15/24 07:03 03/15/24 07:03 Cardiac Enzymes 03/14/24 03/15/24 Range/Units 14:53 07:03 AST 30 22 (17-59) U/L CBC 03/14/24 03/15/24 Range/Units 14:53 07:03 WBC 6.6 4.19 L (3.8-10.6) k/uL RBC 4.01 L 3.71 L (4.30-5.90) m/uL Hgb 11.8 L 10.4 L (13.0-17.5) gm/dL Hct 35.5 L 32.9 L (39.0-53.0) % Plt Count 128 L 101 L (150-450) k/uL Comprehensive Metabolic Panel 03/14/24 03/15/24 Range/Units 14:53 07:03 Sodium 129 L 136 (137-145) mmol/L Potassium 4.2 4.6 (3.5-5.1) mmol/L Chloride 95 L 100 (98-107) mmol/L Carbon Dioxide 31 H 28.1 (22-30) mmol/L BUN 15 12.5 (9-20) mg/dL Creatinine 0.98 1.0 (0.66-1.25) mg/dL Glucose 114 H 96 (74-99) mg/dL Calcium 9.1 9.1 (8.4-10.2) mg/dL AST 30 22 (17-59) U/L ALT 18 11 (4-49) U/L Alkaline Phosphatase 68 59 (38-126) U/L Total Protein 5.7 L 4.8 L (6.3-8.2) g/dL Albumin 3.6 3.5 L (3.5-5.0) g/dL Current Medications Generic Name Dose Route Start Last Admin Trade Name Freq PRN Reason Stop Dose Admin Acetaminophen 325 mg 03/15/24 13:48 Acetaminophen Tab 325 Mg Tab PO Q6HR PRN Mild Pain or Fever > 100.5 Acetaminophen/Butalbital/Caffeine 1 each 03/15/24 13:48 03/15/24 14:53 Butalb/Apap/Caff 50-325-40mg Tab PO 1 each Q4HR PRN Administration Headache Atorvastatin Calcium 20 mg 03/14/24 21:00 03/14/24 20:52 Atorvastatin 20 Mg Tab PO 20 mg HS VICTOR MANUEL Administration Budesonide/Formoterol Fumarate 2 puff 03/14/24 20:00 03/15/24 09:07 Symbicort 80-4.5 Mcg Inhaler INHALATION Not Given RT-BID VICTOR MANUEL Buspirone HCl 5 mg 03/15/24 09:00 03/15/24 08:46 Buspirone Hcl 5 Mg Tab PO Not Given DAILY VICTOR MANUEL Fluoxetine HCl 20 mg 03/15/24 09:00 03/15/24 08:46 Fluoxetine Hcl 20 Mg Cap PO Not Given DAILY VICTOR MANUEL Gabapentin 300 mg 03/14/24 21:00 03/15/24 08:01 Gabapentin 300 Mg Cap PO 300 mg BID VICTOR MANUEL Administration Hydralazine HCl 25 mg 03/14/24 16:41 Hydralazine Hcl 25 Mg Tab PO TID PRN Hypertension Lisinopril 40 mg 03/15/24 09:00 03/15/24 08:01 Lisinopril 20 Mg Tab PO 40 mg DAILY VICTOR MANUEL Administration Meclizine HCl 25 mg 03/14/24 16:41 Meclizine 25 Mg Tab PO DAILY PRN Vertigo Naloxone HCl 0.2 mg 03/14/24 16:40 Naloxone 0.4 Mg/Ml 1 Ml Vial IV Q2M PRN Opioid Reversal Patient's Own ( 250 mg 03/16/24 07:00 Armodafinil [ PO Armodafinil] 250 Mg DAILY@0700 [facility] Tablet) Ondansetron HCl 4 mg 03/14/24 16:40 Ondansetron 4 Mg/2 Ml Vial IVP Q8HR PRN Nausea And Vomiting Oxymetazoline HCl 3 spray 03/15/24 09:52 03/15/24 12:26 Oxymetazoline 0.05% Nasl [place] 1 [place] Bottle NASAL 3 spray TID PRN Administration Congestion Pantoprazole Sodium 40 mg 03/15/24 07:30 03/15/24 06:22 Pantoprazole 40 Mg Tablet PO 40 mg [id number] VICTOR MANUEL Administration Primidone 25 mg 03/14/24 21:00 03/15/24 08:01 Primidone 25 Mg Tab PO Not Given BID VICTOR MANUEL Promethazine HCl 12.5 mg 03/14/24 16:41 Promethazine 25 Mg Tab PO HS PRN Insomnia Propranolol HCl 80 mg 03/14/24 21:00 03/15/24 08:02 Propranolol 40 Mg Tab PO 80 mg BID VICTOR MANUEL Administration Trazodone HCl 300 mg 03/14/24 21:00 03/14/24 20:52 Trazodone Hcl 100 Mg Tab PO 300 mg HS VICTOR MANUEL Administration Intake and Output 03/14/24 03/15/24 03/15/24 22:59 06:59 14:59 Intake Total 560 240 Output Total 100 Balance 560 140 Intake: Oral 560 240 Output: Urine 100 Other: # Voids 3 # Bowel Movements 0 Weight 95.254 kg 03/15/24 07:03 03/15/24 07:03
--- NOTE | 2024-03-15 20:37 | P.HPIM ---
History of Present Illness Please consider this note as combined H&P and discharge summary Please note patient was not discharged but left AMA Diagnoses: Dizziness and hypotension and hyponatremia secondary to overmedication, improved with IV fluid Hypovolemic hyponatremia Thrombocytopenia Anemia Prostate cancer Chronic back pain status post back surgery Hospital course This is a pleasant 83 years old male with past medical history of multiple medical problems as below Patient awake alert and oriented to time place and person, he is calm lying in bed. He told me he comes because he has been feeling dizzy and he was checking his blood pressure and it was abnormal. Patient states that he checks his blood pressure at home every 1 hour, he has tried his systolic blood pressure was 130 so he thought it is high and he took extra dose of hydralazine. He denies chest pain dyspnea. No other complaints On admission his blood pressure was on the low side, he received IV fluid. Currently blood pressure improved with systolic 120. Also hyponatremia improved and sodium back to reference range most likely secondary to hypotension. Patient received normal saline boluses and kept on normal saline 75 mL/h. His legs were significantly swollen so I ordered. IV fluid. Also patient evaluated by communications marketing intern After rounding patient left AMA before I have a chance to see him or talk to him again. Based upon my evaluation patient has capacity to make medical decision Review of Systems Review of systems CONSTITUTIONAL: No fever, no malaise, no fatigue. HEENT: No recent visual problems or hearing problems. Denied any sore throat. CARDIOVASCULAR: No orthopnea, PND, no palpitations, no syncope. PULMONARY: No shortness of breath, no cough, no hemoptysis. GASTROINTESTINAL: No diarrhea, no nausea, no vomiting, no abdominal pain. Normoactive bowel sounds. NEUROLOGICAL: No headaches, no weakness, no numbness. HEMATOLOGICAL: Denies any bleeding or petechiae. GENITOURINARY: Denies any burning micturition, frequency, or urgency. MUSCULOSKELETAL/RHEUMATOLOGICAL: Denies any joint pain, swelling, or any muscle pain. ENDOCRINE: Denies any polyuria or polydipsia. Past Medical History Past Medical History: Cancer, Prostate Disorder Additional Past Medical History / Comment(s): ESSENTAILS TREMORS. PROSTATE CANCER. MENIERS. Narcolepsy. ASPIRATION PNEUMONIA (SOB AT NIGHT, O2@5-7L). broken ankle in [employer] History of Any Multi-Drug Resistant Organisms: None Reported Past Surgical History: Appendectomy, Back Surgery Additional Past Surgical History / Comment(s): L4-5 BACK SURGERY. INOPERABLE PROSTATE CANCER (RADIATION). LASIK. EVY ORCHIECTOMY. Past Anesthesia/Blood Transfusion Reactions: No Reported Reaction Past Psychological History: No Psychological Hx Reported Smoking Status: Never smoker Past Alcohol Use History: Daily Past Drug Use History: None Reported Medications and Allergies Home Medications Medication Instructions Recorded Confirmed Type ALPRAZolam [Xanax] 2 mg PO HS@1900 11/03/22 03/14/24 History Atorvastatin [Lipitor] 20 mg PO DAILY@0700 11/03/22 03/14/24 History Omeprazole 20 mg PO BID@0700,189911/03/22 03/14/24 History lisinopriL [Lisinopril] 40 mg PO DAILY@0700 11/03/22 03/14/24 History traZODone HCL 300 mg PO HS@1900 11/03/22 03/14/24 History Gabapentin [Neurontin] 300 mg PO BID@0700,189902/25/23 03/14/24 History Naproxen Sodium [Naproxen Sodium 375 mg PO BID PRN 02/25/23 03/14/24 History ER] Nitroglycerin Sl Tabs [Nitrostat] 0.4 mg SL Q5M PRN 02/25/23 03/14/24 History Testosterone [Androgel 1.62%] 2 pump TRANSDERM HS@1900 02/25/23 03/14/24 History Vitamin B Complex 1 cap PO HS@1900 02/25/23 03/14/24 History Meclizine [Antivert] 25 mg PO DAILY PRN 01/23/24 03/14/24 History Propranolol HCl 80 mg PO BID@0700,1900 01/23/24 03/14/24 History hydrALAZINE HCL 25 mg PO TID PRN 01/26/24 03/14/24 History Azelastine HCl [Astelin Nasal 2 spray EA NOSTRIL BID@0700,1900 02/15/24 03/14/24 History [place]] Cholecalciferol [Vitamin D3 (25 25 mcg PO HS@1900 02/15/24 03/14/24 History Mcg = 1000 Iu)] Fluticasone Propion/Salmeterol 1 puff INHALATION RT-BID@0700,1900 02/15/2402/16 History [Advair 250-50 Diskus] armodafiniL 250 mg PO DAILY@0700 02/15/24 03/14/24 History Multivitamins, Thera [Multivitamin 1 tab PO HS@1900 03/14/24 03/14/24 History (formulary)] Promethazine HCl 12.5 mg PO HS PRN 03/14/24 03/14/24 History Allergies Allergy/AdvReac Type Severity Reaction Status Date / Time No Known Allergies Allergy Verified 03/14/24 16:32 Physical Exam Vitals: Vital Signs Temp Pulse Pulse Pulse Pulse Pulse Resp 03/15/24 09:15 62 65 65 03/15/24 07:00 97.8 F 63 16 03/15/24 03:30 97.4 F L 63 16 03/15/24 02:00 97.4 F L 63 16 03/14/24 22:00 97.5 F L 60 16 03/14/24 20:46 97.8 F 65 16 03/14/24 18:32 97.7 F 62 18 03/14/24 17:09 59 L 18 03/14/24 14:58 66 18 03/14/24 14:17 98.4 F 73 18 BP BP BP BP BP Pulse Ox FiO2 03/15/24 09:15 126/72 131/65 125/69 96 03/15/24 07:00 120/72 93 L 03/15/24 03:30 95/60 98 03/15/24 02:00 95/60 98 03/14/24 22:00 120/71 93 L 03/14/24 20:46 133/80 93 L 03/14/24 18:32 125/80 99 03/14/24 17:09 124/69 96 03/14/24 14:58 130/66 97 03/14/24 14:17 131/74 95 Intake and Output 03/14/24 03/15/24 03/15/24 22:59 06:59 14:59 Intake Total 560 240 Output Total 100 Balance 560 140 Intake: Oral 560 240 Output: Urine 100 Other: # Voids 3 # Bowel Movements 0 Weight 95.254 kg GENERAL: The patient is alert and oriented x3, not in any acute distress. Well developed, well nourished. HEENT: Pupils are round and equally reacting to light. EOMI. No scleral icterus. No conjunctival pallor. Normocephalic, atraumatic. No pharyngeal erythema. No thyromegaly. CARDIOVASCULAR: S1 and S2 present. No murmurs, rubs, or gallops. PULMONARY: Chest is clear to auscultation, no wheezing , no crackles. ABDOMEN: Soft, nontender, nondistended, normoactive bowel sounds. No palpable organomegaly. MUSCULOSKELETAL: No joint swelling or deformity. -EXTREMITIES: No cyanosis, clubbing,. Bilateral pitting leg edema. NEUROLOGICAL: Gross neurological examination did not reveal any focal deficits. SKIN: No rashes. no petechiae. Results CBC & Chem 7: 03/15/24 07:03 03/15/24 07:03 Labs: Abnormal Lab Results - Last 24 Hours (Table) 03/14/24 03/14/24 03/14/24 Range/Units 14:53 14:53 14:53 WBC (4.50-10.00) X 10*3/uL RBC 4.01 L (4.30-5.90) m/uL Hgb 11.8 L (13.0-17.5) gm/dL Hct 35.5 L (39.0-53.0) % MCHC (32.0-37.0) g/dL RDW (11.5-14.5) % Plt Count 128 L (150-450) k/uL Lymphocytes # (0.90-5.00) X 10*3/uL Sodium 129 L (137-145) mmol/L Chloride 95 L (98-107) mmol/L Carbon Dioxide 31 H (22-30) mmol/L Glucose 114 H (74-99) mg/dL Total Protein 5.7 L (6.3-8.2) g/dL Albumin (3.8-4.9) g/dL Globulin (1.6-3.3) g/dL Urine Protein Trace H (Negative) U Benzodiazepines Scrn Detected H (NotDetected) 03/15/24 03/15/24 Range/Units 07:03 07:03 WBC 4.19 L (4.50-10.00) X 10*3/uL RBC 3.71 L (4.30-5.90) m/uL Hgb 10.4 L (13.0-17.5) gm/dL Hct 32.9 L (39.0-53.0) % MCHC 31.6 L (32.0-37.0) g/dL RDW 15.9 H (11.5-14.5) % Plt Count 101 L (150-450) k/uL Lymphocytes # 0.81 L (0.90-5.00) X 10*3/uL Sodium (137-145) mmol/L Chloride (98-107) mmol/L Carbon Dioxide (22-30) mmol/L Glucose (74-99) mg/dL Total Protein 4.8 L (6.3-8.2) g/dL Albumin 3.5 L (3.8-4.9) g/dL Globulin 1.3 L (1.6-3.3) g/dL Urine Protein (Negative) U Benzodiazepines Scrn (NotDetected)
[2024-03-16] MEDS ORDERED: ARMODAFINIL 250 MG PO SCH (07:00)
[2024-03-16] MEDS ORDERED: ASPIRIN 81 MG PO SCH (09:00)
== END 2024-03-15 17:58 | disposition left against medical advice (07) ==
LOC: EC 14:10 → 6NMEDSUR 16:41
PROVIDERS: ADMIT Internal Medicine; ATTEND Internal Medicine
DX: T50.901A Poisoning by unspecified drugs, medicaments and biological substances, accidental (unintentional), initial encounter (principal); R42 Dizziness and giddiness; E87.1 Hypo-osmolality and hyponatremia; I95.9 Hypotension, unspecified; R06.09 Other forms of dyspnea; Z53.29 Procedure and treatment not carried out because of patient's decision for other reasons; D64.9 Anemia, unspecified; D69.6 Thrombocytopenia, unspecified; E78.5 Hyperlipidemia, unspecified; E86.0 Dehydration; E86.1 Hypovolemia; G89.29 Other chronic pain; M54.9 Dorsalgia, unspecified; I10 Essential (primary) hypertension; I45.10 Unspecified right bundle-branch block; I25.10 Atherosclerotic heart disease of native coronary artery without angina pectoris; Z79.899 Other long term (current) drug therapy; Z85.46 Personal history of malignant neoplasm of prostate; G25.0 Essential tremor
CPT/HCPCS: 96361; 96374; 99285; 36415; 93005; 80053 ×2; 83735; 85025 ×2; 81003; 80306; 87636; 71046; G0378 ×2; G0480; J1885; 80320

== ENCOUNTER → 2024-06-27 | Outpatient (CLI) | payer MEDICARE ==
[2024-06-27 22:59] LABS: Immunoglobulin E 5.77 IU/mL (0.00-114.00)
[2024-06-28 14:30] LABS: Alternaria alternata IgE <0.10 kU/L; Aspergillus fumagatus IgE <0.10 kU/L; Birch IgE <0.10 kU/L; Cat Epith & Dander IgE <0.10 kU/L; Cladosporian herbarum IgE <0.10 kU/L; Cockroach IgE <0.10 kU/L; Dermato. farinae IgE <0.10 kU/L; Dog Dander IgE <0.10 kU/L; Elm IgE <0.10 kU/L; Maple (Box Elder) IgE <0.10 kU/L; Oak IgE <0.10 kU/L; Ragweed,Common IgE <0.10 kU/L; Red Top (Bentgrass) IgE <0.10 kU/L
== END | disposition home or self-care (01) ==
LOC: LABWHC1 15:38
PROVIDERS: ATTEND Otolaryngology
DX: J30.89 Other allergic rhinitis (principal)
CPT/HCPCS: 36415; 82785; 86003